=== PATIENT | male | born 1975 | race American Indian/Alaskan Native ===

== ENCOUNTER 2016-07-29 09:54 | Inpatient (IN) | payer OTHER ==
[2016-07-29 09:54] VITALS: BMI 30.7
[2016-07-29] MEDS ORDERED: Albuterol-Ipratrop 3 mg / 0.5 (3 ml) UD ONE ×3 (10:14→14:28)
[2016-07-29] MEDS ORDERED: Albuterol-Ipratrop 3 mg / 0.5 (3 ml) UD INH STA ×4 (10:25→13:59)
--- NOTE | 2016-07-29 10:43 | C.PDOC ---
History Of Present Illness 41 y/o male presents to ED c/o shortness of breath, productive cough, and wheezing for the last several days. Patient states he has been using his inhaler at home without relief. History limited due to clinical condition. Time Seen by Provider: 07/29/16 10:00 Chief Complaint (Nursing): Shortness Of Breath History Per: Patient History/Exam Limitations: clinical condition Onset/Duration Of Symptoms: Days Current Symptoms Are (Timing): Still Present Current Respiratory Medications: See Home Med List Severity: Moderate Associated Symptoms: denies: Fever, Chest Pain Recent travel outside of the [place]: No Past Medical History Reviewed: Historical Data, Nursing Documentation, Vital Signs Vital Signs: Last Vital Signs Temp 98.5 F 08/04/16 15:35 Pulse 90 08/04/16 15:35 Resp 20 08/04/16 15:35 BP 125/74 08/04/16 15:35 Pulse Ox 96 08/04/16 15:35 - Medical History PMH: Anxiety, Arthritis, Asthma, HTN - [facility] Procedures ASSISTANCE WITH RESPIRATORY VENTILATION, <24 HRS, CPAP (08/10/15) INSERTION OF ENDOTRACHEAL AIRWAY INTO TRACHEA, VIA OPENING (08/10/15) RESPIRATORY VENTILATION, 24-96 CONSECUTIVE HOURS (08/10/15) Family History: States: No Known Family Hx - Social History Hx Tobacco Use: Yes Hx Alcohol Use: Yes Hx Substance Use: No - Immunization History Hx Tetanus Toxoid Vaccination: Yes Hx Influenza Vaccination: No Hx Pneumococcal Vaccination: No Review Of Systems Except As Marked, All Systems Reviewed And Found Negative. Constitutional: Negative for: Fever Cardiovascular: Negative for: Chest Pain, Palpitations Respiratory: Positive for: Cough, Shortness of Breath, Sputum, Wheezing Gastrointestinal: Negative for: Nausea, Vomiting, Abdominal Pain, Diarrhea Skin: Negative for: Rash Physical Exam - Physical Exam Appears: Non-toxic, Other (audibly wheezing, speaking in short sentences ) Skin: Warm, Dry, No Rash Head: Normacephalic Oral Mucosa: Moist Cardiovascular: Rhythm Regular Respiratory: No Accessory Muscle Use, No Rales, No Rhonchi, Wheezing (expiratory , bilaterally) Gastrointestinal/Abdominal: Normal Exam, Bowel Sounds, Soft, No Tenderness, No Guarding, No Rebound Back: Normal Inspection Extremity: Normal ROM, No Pedal Edema, No Calf Tenderness Neurological/Psych: Oriented x3 ED Course And Treatment - Laboratory Results Result Diagrams: 08/03/16 14:16 08/03/16 14:16 ECG: Interpreted By Me, Viewed By Me (NSR 82 bpm, normal axis, no acute ST/T wave changes) ECG Interpretation: Normal O2 Sat by Pulse Oximetry: 95 (RA) Pulse Ox Interpretation: Normal - Other Rad CXR X-Ray: Viewed By Me, Read By Radiologist Interpretation: Accession No. : [id number]. Patient Name / ID : NESTOR HANSEN / [id number]. Exam Date : 07/29/2016 10:29:17 ( Approved ). Study Comment : Sex / Age : M / 41Y. Creator : Eevlyn Lombardo MD. Dictator : Evelyn Lombardo MD. Plate Keeper : [employer] Operator : Evelyn Lombardo MD. Approver2 : Report Date : 07/29/2016 10:44:06. My Comment : . HISTORY: cough, sob. COMPARISON: Chest x-ray performed 09/08/15. TECHNIQUE: Chest PA and lateral. FINDINGS: LUNGS: No focal consolidation. Please note that chest x-ray has limited sensitivity for the detection of pulmonary masses. PLEURA: No significant pleural effusion identified. No definite pneumothorax . CARDIOVASCULAR: Heart size appears top normal. OSSEOUS STRUCTURES: No acute osseous abnormality identified. VISUALIZED UPPER ABDOMEN: Unremarkable. OTHER FINDINGS: None. IMPRESSION: No focal consolidation, significant pleural effusion, or definite pneumothorax identified. Progress Note: Patient given PO prednisone, neb treatments. CXR and peak flow ordered and reviewed. 13:15- Patient reassessed, still having diffuse wheezing. Blood work ordered. Patient given IV solumedrol, IV magnesium sulfate 2g. - Physician Consult Information Physician Contacted: Gustavo Gaona Outcome Of Conversation: Discussed patient with Dr. Gaona, agrees with admission for copd/asthma exacerbation, dyspnea. Critical Care Time - Critical Care Note Total Time (in mins): 35 Documented critical care: time excludes all time spent performing seperately billable procedures. Disposition - Disposition Disposition: HOSPITALIZED Disposition Time: 15:07 Condition: STABLE - Clinical Impression Clinical Impression: COPD exacerbation, Asthma, Dyspnea - Scribe Statement The provider has reviewed the documentation as recorded by the Donny Alarcon Provider Attestation: All medical record entries made by the Donny were at my direction and personally dictated by me. I have reviewed the chart and agree that the record accurately reflects my personal performance of the history, physical exam, medical decision making, and the department course for this patient. I have also personally directed, reviewed, and agree with the discharge instructions and disposition.
[2016-07-29] MEDS ORDERED: Albuterol 0.083% Inhal Sol (2.5 mg/3 mL) UD IH STA ×2 (11:19→11:20)
[2016-07-29] MEDS ORDERED: Albuterol 0.083% Inhal Sol (2.5 mg/3 mL) UD ONE (11:36)
[2016-07-29] MEDS ORDERED: Magnesium Sulfate 1 gm in D5W 1 GM/100 ML BAG IV ONE (13:17)
[2016-07-29] MEDS ORDERED: Magnesium Sulfate 1 gm in D5W 1 GM/100 ML BAG IVPB ONE (13:42)
[2016-07-29 13:45] LABS: BASO % 0.9 % (0.0-2.0); EOS % 0.7 % (0.0-4.0); LYMPH # 0.5 K/uL (1.0-4.3); LYMPH % 9.2 % (20.0-40.0); MEAN CELL VOLUME 90.9 fL (80.0-94.0); MEAN CORPUSCULAR HEMOGLOBIN 29.2 pg (27.0-31.0); MEAN CORPUSCULAR HGB CONC 32.1 g/dL (33.0-37.0); MEAN PLATELET VOLUME 8.4 fL (7.2-11.7); MONO # 0.1 K/uL (0.0-0.8); MONO % 2.6 % (0.0-10.0); NRBC % 0.1 % (0.0-2.0); PLATELET COUNT 302 K/uL (130-400); RED CELL DISTRIBUTION WIDTH 13.5 % (11.5-14.5)
[2016-07-29 13:53] LABS: CHLORIDE 100 mmol/L (98-107); POTASSIUM 3.9 mmol/L (3.6-5.2); SODIUM 138 mmol/L (132-148)
[2016-07-29 13:55] LABS: AST/SGOT 27 U/L (17-59); BILIRUBIN,TOTAL 0.9 mg/dL (0.2-1.3); CARBON DIOXIDE 29 mmol/L (22-30); GFR AFRICAN-AMERICAN > 60
[2016-07-29 13:56] LABS: ALB/GLOB RATIO 1.5 (1.0-2.1); ALKALINE PHOSPHATASE 64 U/L (38-126); ALT/SGPT 25 U/L (21-72); BLOOD UREA NITROGEN 6 mg/dL (9-20); GLUCOSE,RANDOM 115 mg/dL (75-110); TOTAL PROTEIN 7.7 g/dL (6.3-8.3)
[2016-07-29 14:25] LABS: EOSINOPHIL 1 % (0-4); NEUTROPHIL 90 % (50-75); TOTAL CELLS COUNTED 100
[2016-07-29] MEDS ORDERED: Moxifloxacin IV 400mg/250ml NS 400 MG/250 ML BAG IVPB ONE (15:34)
[2016-07-29] MEDS ORDERED: Moxifloxacin IV 400mg/250ml NS 400 MG/250 ML BAG IV ONE (16:00)
[2016-07-29] MEDS: Albuterol-Ipratrop 3 mg / 0.5 (3 ml) UD INH SCH ×4 (18:10→22:47)
[2016-07-30] MEDS: Albuterol-Ipratrop 3 mg / 0.5 (3 ml) UD INH SCH ×10 (00:24→20:02)
[2016-07-30 12:13] LABS: BASO % 0.3 % (0.0-2.0); EOS % 0.1 % (0.0-4.0); LYMPH # 1.6 K/uL (1.0-4.3); LYMPH % 17.2 % (20.0-40.0); MEAN CELL VOLUME 90.4 fL (80.0-94.0); MEAN CORPUSCULAR HGB CONC 33.2 g/dL (33.0-37.0); MEAN PLATELET VOLUME 8.5 fL (7.2-11.7); MONO % 11.1 % (0.0-10.0)
[2016-07-30 12:17] LABS: CHLORIDE 98 mmol/L (98-107)
[2016-07-30 12:18] LABS: POTASSIUM 3.3 mmol/L (3.6-5.2); SODIUM 138 mmol/L (132-148)
[2016-07-30 12:20] LABS: ALB/GLOB RATIO 1.5 (1.0-2.1); ALKALINE PHOSPHATASE 57 U/L (38-126); ALT/SGPT 22 U/L (21-72); AST/SGOT 19 U/L (17-59); BILIRUBIN,TOTAL 0.6 mg/dL (0.2-1.3); BLOOD UREA NITROGEN 11 mg/dL (9-20); CARBON DIOXIDE 29 mmol/L (22-30); GFR AFRICAN-AMERICAN > 60
[2016-07-30 12:21] LABS: GLUCOSE,RANDOM 98 mg/dL (75-110); WHITE BLOOD COUNT 9.4 K/uL (4.8-10.8)
[2016-07-30] MEDS ORDERED: Potassium Chloride 20 mEq ER Tab PO ONE ×2 (12:32→14:24)
--- NOTE | 2016-07-30 12:46 | CP.PCM.PN ---
Subjective - Date & Time of Evaluation Date of Evaluation: 07/30/16 Time of Evaluation: 09:00 - Subjective Subjective: PGY2 on medicine Dr. Gaona service: Pt seen and examined at bedside this morning. Pt has hx of asthma and intubation in the past. 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 He has experienced SOB and wheezing for several days. Pt takes Symbicort as needed and nebulizer every 6 hours without success. Currently reporting improvement of symptoms overnight. Objective - Vital Signs/Intake and Output Vital Signs (last 24 hours): Temp Pulse Resp BP Pulse Ox 98.6 F 90 18 144/78 95 07/30/16 08:40 07/30/16 08:40 07/30/16 08:40 07/30/16 08:40 07/30/16 08:40 Intake and Output: 07/30/16 07/30/16 06:59 18:59 Intake Total 120 Output Total 200 Balance -80 - Medications Medications: Current Medications Albuterol/Ipratropium (Duoneb 3 Mg/0.5 Mg (3 Ml) Ud) 3 ml INH RQ2 JERARDO Last Admin: 07/30/16 11:33 Dose: 3 ml Nicotine (Nicoderm Cq) 1 patch TD DAILY JERARDO Last Admin: 07/29/16 15:48 Dose: 1 patch Pneumococcal Polyvalent Vaccine (Pneumovax 23 Vaccine) 0.5 ml IM .ONCE ONE Stop: 07/31/16 10:01 Potassium Chloride (K-Dur 20 Meq Er Tab) 40 meq PO ONCE ONE Stop: 07/30/16 12:33 - Labs Labs: 07/30/16 11:52 07/30/16 11:52 - Constitutional Appears: Non-toxic, No Acute Distress - Head Exam Head Exam: NORMOCEPHALIC - Eye Exam Eye Exam: Normal appearance - ENT Exam ENT Exam: Mucous Membranes Moist - Respiratory Exam Respiratory Exam: Rales, Rhonchi, Wheezes, NORMAL BREATHING PATTERN - Cardiovascular Exam Cardiovascular Exam: REGULAR RHYTHM, +S1, +S2. absent: Gallop, Rubs - GI/Abdominal Exam GI & Abdominal Exam: Normal Bowel Sounds - Neurological Exam Neurological Exam: Alert, Awake, Oriented x3 Assessment and Plan - Assessment and Plan (Free Text) Assessment: SOB Astham vs COPD exacerbation. Received Duoneb, Avelox and Solumedrol in ED. CXR showed no significant etiologies per report. Continue Duoneb and Solumderol 40mg IV q6. Prophylactic measure SCD.
--- NOTE | 2016-07-30 14:06 | HP ---
This 41-year-old male ____ to the hospital with chief complaint of weakness, shortness of breath, whe ezing, fatigue, tiredness, cough not responding to therapy. The patient came to the hospital, advise d admission. The patient has history of COPD, smoker. PHYSICAL EXAMINATION: GENERAL: The patient is awake, alert, oriented. VITAL SIGNS: Temperature 98, pulse 90. HEENT: Within normal limits. NECK: Supple. CHEST: Symmetrical. HEART: Regular. ABDOMEN: Soft. EXTREMITIES: No edema. The patient suffers from exacerbation of chronic obstructive pulmonary disease, bronchitis. The dima ent bed rest, supportive care, bronchodilators. Gustavo Bhakta MD cc: [id number] TT: 07/30/2016 11:20:30 tn
[2016-07-30] MEDS: MethylPREDNISolone 40 mg Vial IV SCH ×2 (14:12→18:47)
[2016-07-30] MEDS ORDERED: Albuterol 0.083% Inhal Sol (2.5 mg/3 mL) UD INH PRN (16:00)
[2016-07-31] MEDS: MethylPREDNISolone 40 mg Vial IV SCH ×4 (00:06→17:52)
[2016-07-31] MEDS: Albuterol-Ipratrop 3 mg / 0.5 (3 ml) UD INH SCH ×4 (01:36→20:08)
[2016-07-31] MEDS ORDERED: Pneumococcal 23-Valent Vaccine IM ONE (10:00)
--- NOTE | 2016-07-31 10:50 | CP.PCM.PN ---
Subjective - Date & Time of Evaluation Date of Evaluation: 07/31/16 Time of Evaluation: 09:00 - Subjective Subjective: PGY2 on medicine Dr. Gaona service: Pt seen and examined at bedside this morning. Pt reports improvement of symptoms slightly but still has wheezing and SOB from time to time. Objective - Vital Signs/Intake and Output Vital Signs (last 24 hours): Temp Pulse Resp BP Pulse Ox 98.1 F 80 20 123/68 97 07/31/16 08:15 07/31/16 08:15 07/31/16 08:15 07/31/16 08:15 07/31/16 08:15 Intake and Output: 07/31/16 07/31/16 06:59 18:59 Intake Total 600 Balance 600 - Medications Medications: Current Medications Albuterol Sulfate (Albuterol 0.083% Inhal Eva (2.5 Mg/3 Ml) Ud) 2.5 mg INH RQ2 PRN PRN Reason: Shortness of Breath Last Admin: 07/30/16 16:59 Dose: 2.5 mg Albuterol/Ipratropium (Duoneb 3 Mg/0.5 Mg (3 Ml) Ud) 3 ml INH RQ6 JERARDO Last Admin: 07/31/16 07:54 Dose: 3 ml Methylprednisolone (Solu-Medrol) 40 mg IV Q6 JERARDO Last Admin: 07/31/16 06:10 Dose: 40 mg Nicotine (Nicoderm Cq) 1 patch TD DAILY [facility] Last Admin: 07/31/16 10:47 Dose: 1 patch - Labs Labs: 07/30/16 11:52 07/30/16 11:52 - Constitutional Appears: Non-toxic, No Acute Distress - Head Exam Head Exam: NORMOCEPHALIC - Eye Exam Eye Exam: Normal appearance - ENT Exam ENT Exam: Mucous Membranes Moist - Respiratory Exam Respiratory Exam: Rales, Rhonchi, Wheezes, NORMAL BREATHING PATTERN - Cardiovascular Exam Cardiovascular Exam: REGULAR RHYTHM, +S1, +S2. absent: Gallop, Rubs - GI/Abdominal Exam GI & Abdominal Exam: Soft, Normal Bowel Sounds - Neurological Exam Neurological Exam: Alert, Awake, Oriented x3 - Psychiatric Exam Psychiatric exam: Normal Mood - Skin Skin Exam: Intact Assessment and Plan - Assessment and Plan (Free Text) Assessment: SOB Astham vs COPD exacerbation. Received Duoneb, Avelox and Solumedrol in ED. CXR showed no significant etiologies per report. Continue Duoneb and Solumderol 40mg IV q6. Phenergan DM syrup. Prophylactic measure SCD. Management per Dr. Gaona.
[2016-07-31] MEDS ORDERED: Promethazine DM 6.25 mg-15 mg/5 ml Syrup PO PRN (12:55)
[2016-07-31] MEDS: Promethazine/Cod 6.25mg-10mg/5ml Syr UD PO PRN (15:29)
[2016-08-01] MEDS: MethylPREDNISolone 40 mg Vial IV SCH ×5 (00:08→23:55)
[2016-08-01] MEDS: Promethazine/Cod 6.25mg-10mg/5ml Syr UD PO PRN ×3 (00:13→18:10)
[2016-08-01] MEDS: Albuterol-Ipratrop 3 mg / 0.5 (3 ml) UD INH SCH ×4 (02:01→20:26)
[2016-08-01 11:18] LABS: LYMPH # 0.6 K/uL (1.0-4.3); MEAN CORPUSCULAR HEMOGLOBIN 29.6 pg (27.0-31.0); MEAN CORPUSCULAR HGB CONC 32.3 g/dL (33.0-37.0); MONO # 0.5 K/uL (0.0-0.8)
[2016-08-01 11:22] LABS: MEAN CELL VOLUME 91.8 fL (80.0-94.0); MEAN PLATELET VOLUME 8.6 fL (7.2-11.7); MONO % 3.4 % (0.0-10.0); PLATELET COUNT 344 K/uL (130-400); RED CELL DISTRIBUTION WIDTH 13.9 % (11.5-14.5)
[2016-08-01 11:23] LABS: WHITE BLOOD COUNT 14.8 K/uL (4.8-10.8)
[2016-08-01 11:26] LABS: CHLORIDE 97 mmol/L (98-107)
[2016-08-01 11:27] LABS: POTASSIUM 3.9 mmol/L (3.6-5.2); SODIUM 138 mmol/L (132-148)
[2016-08-01 11:29] LABS: BILIRUBIN,TOTAL 0.5 mg/dL (0.2-1.3); GFR AFRICAN-AMERICAN > 60
[2016-08-01 11:30] LABS: ALB/GLOB RATIO 1.5 (1.0-2.1); ALKALINE PHOSPHATASE 56 U/L (38-126); ALT/SGPT 34 U/L (21-72); AST/SGOT 25 U/L (17-59); BLOOD UREA NITROGEN 16 mg/dL (9-20); CALCIUM 9.5 mg/dl (8.6-10.4); CARBON DIOXIDE 29 mmol/L (22-30); GLUCOSE,RANDOM 160 mg/dL (75-110); TOTAL PROTEIN 7.4 g/dL (6.3-8.3)
[2016-08-01 11:39] LABS: NEUTROPHIL 90 % (50-75); TOTAL CELLS COUNTED 100
[2016-08-01 11:41] LABS: LARGE PLATELETS PRESENT
[2016-08-02] MEDS: Promethazine/Cod 6.25mg-10mg/5ml Syr UD PO PRN ×4 (00:12→19:21)
[2016-08-02] MEDS: Albuterol-Ipratrop 3 mg / 0.5 (3 ml) UD INH SCH ×4 (01:09→19:08)
[2016-08-02] MEDS: MethylPREDNISolone 40 mg Vial IV SCH ×4 (06:43→23:58)
[2016-08-02 11:36] LABS: BASO % 0.2 % (0.0-2.0); HEMATOCRIT 45.9 % (35.0-51.0); LYMPH # 0.5 K/uL (1.0-4.3); LYMPH % 3.7 % (20.0-40.0); MEAN CELL VOLUME 92.2 fL (80.0-94.0); MEAN CORPUSCULAR HEMOGLOBIN 29.5 pg (27.0-31.0); MEAN PLATELET VOLUME 8.3 fL (7.2-11.7); MONO # 0.5 K/uL (0.0-0.8); PLATELET COUNT 349 K/uL (130-400); RED CELL DISTRIBUTION WIDTH 14.1 % (11.5-14.5); WHITE BLOOD COUNT 13.5 K/uL (4.8-10.8)
[2016-08-02 11:45] LABS: CHLORIDE 96 mmol/L (98-107)
[2016-08-02 11:46] LABS: POTASSIUM 4.1 mmol/L (3.6-5.2); SODIUM 136 mmol/L (132-148)
[2016-08-02 11:48] LABS: ALB/GLOB RATIO 1.5 (1.0-2.1); ALKALINE PHOSPHATASE 64 U/L (38-126); AST/SGOT 39 U/L (17-59); BILIRUBIN,TOTAL 0.5 mg/dL (0.2-1.3); CARBON DIOXIDE 31 mmol/L (22-30); GFR AFRICAN-AMERICAN > 60
[2016-08-02 11:49] LABS: ALT/SGPT 71 U/L (21-72); BLOOD UREA NITROGEN 13 mg/dL (9-20); CALCIUM 9.1 mg/dl (8.6-10.4); GLUCOSE,RANDOM 163 mg/dL (75-110)
[2016-08-02 11:53] LABS: NEUTROPHIL 95 % (50-75); TOTAL CELLS COUNTED 100
[2016-08-02 11:54] LABS: LARGE PLATELETS PRESENT
[2016-08-03] MEDS: Albuterol-Ipratrop 3 mg / 0.5 (3 ml) UD INH SCH ×4 (01:36→19:01)
[2016-08-03] MEDS: MethylPREDNISolone 40 mg Vial IV SCH ×3 (05:46→17:27)
[2016-08-03] MEDS: Promethazine/Cod 6.25mg-10mg/5ml Syr UD PO PRN ×2 (05:46→17:28)
--- NOTE | 2016-08-03 08:40 | CP.PCM.PN ---
Subjective - Date & Time of Evaluation Date of Evaluation: 08/03/16 Time of Evaluation: 09:00 - Subjective Subjective: Dr. Gaona's note: Patient is seen in room. He reports to having been admitted to the hospital before for asthma. He works for the [employer] and his asthma is exacerbate by dust and allergens. He is compling of diffaculty breathing, wheezing, coughing, and chest tightness. He is still coughing and complaining of chest tightness since admission. He denies fever or chills. Objective - Vital Signs/Intake and Output Vital Signs (last 24 hours): Temp Pulse Resp BP Pulse Ox 98.1 F 81 20 134/90 95 08/03/16 08:38 08/03/16 08:38 08/03/16 08:38 08/03/16 08:38 08/03/16 08:38 - Medications Medications: Current Medications Albuterol Sulfate (Albuterol 0.083% Inhal Eva (2.5 Mg/3 Ml) Ud) 2.5 mg INH RQ2 PRN PRN Reason: Shortness of Breath Last Admin: 07/30/16 16:59 Dose: 2.5 mg Albuterol/Ipratropium (Duoneb 3 Mg/0.5 Mg (3 Ml) Ud) 3 ml INH RQ6 JERARDO Last Admin: 08/03/16 01:36 Dose: 3 ml Methylprednisolone (Solu-Medrol) 40 mg IV Q6 JERARDO Last Admin: 08/03/16 05:46 Dose: 40 mg Nicotine (Nicoderm Cq) 1 patch TD DAILY JERARDO Last Admin: 08/02/16 10:10 Dose: 1 patch Promethazine HCl/Codeine (Phenergan/Codeine Oral Syrup) 5 ml PO Q6H PRN PRN Reason: cough Last Admin: 08/03/16 05:46 Dose: 5 ml - Labs Labs: 08/02/16 11:27 08/02/16 11:27 - Constitutional Appears: Non-toxic, No Acute Distress - Head Exam Head Exam: NORMAL INSPECTION - Eye Exam Eye Exam: Normal appearance - Respiratory Exam Respiratory Exam: Decreased Breath Sounds, Wheezes. absent: Clear to Ausculation Bilateral, Rales, Rhonchi - Cardiovascular Exam Cardiovascular Exam: REGULAR RHYTHM, RRR, +S1, +S2. absent: Gallop, Rubs - GI/Abdominal Exam GI & Abdominal Exam: Soft, Normal Bowel Sounds. absent: Tenderness - Extremities Exam Extremities Exam: Normal Inspection. absent: Pedal Edema - Psychiatric Exam Psychiatric exam: Normal Affect, Normal Mood - Skin Skin Exam: Dry
[2016-08-03 14:34] LABS: BASO % 0.2 % (0.0-2.0); EOS % 0.1 % (0.0-4.0); HEMATOCRIT 45.7 % (35.0-51.0); LYMPH # 0.8 K/uL (1.0-4.3); LYMPH % 4.4 % (20.0-40.0); MEAN CELL VOLUME 92.7 fL (80.0-94.0); MEAN CORPUSCULAR HEMOGLOBIN 29.6 pg (27.0-31.0); MEAN PLATELET VOLUME 8.8 fL (7.2-11.7); MONO # 0.5 K/uL (0.0-0.8); NRBC % 0.1 % (0.0-2.0); PLATELET COUNT 376 K/uL (130-400); RED CELL DISTRIBUTION WIDTH 14.2 % (11.5-14.5); WHITE BLOOD COUNT 17.4 K/uL (4.8-10.8)
[2016-08-03 14:51] LABS: CHLORIDE 95 mmol/L (98-107); SODIUM 132 mmol/L (132-148)
[2016-08-03 14:53] LABS: AST/SGOT 88 U/L (17-59); CARBON DIOXIDE 25 mmol/L (22-30); GFR AFRICAN-AMERICAN > 60
[2016-08-03 14:54] LABS: ALB/GLOB RATIO 1.4 (1.0-2.1); ALKALINE PHOSPHATASE 64 U/L (38-126); ALT/SGPT 115 U/L (21-72); BLOOD UREA NITROGEN 17 mg/dL (9-20); CALCIUM 9.1 mg/dl (8.6-10.4); GLUCOSE,RANDOM 154 mg/dL (75-110); TOTAL PROTEIN 7.3 g/dL (6.3-8.3)
[2016-08-03 15:01] LABS: POTASSIUM 5.2 mmol/L (3.6-5.2)
[2016-08-03 15:22] LABS: NEUTROPHIL 96 % (50-75); TOTAL CELLS COUNTED 100
[2016-08-04] MEDS: MethylPREDNISolone 40 mg Vial IV SCH ×3 (00:42→11:30)
[2016-08-04] MEDS: Promethazine/Cod 6.25mg-10mg/5ml Syr UD PO PRN ×2 (00:51→09:40)
[2016-08-04] MEDS: Albuterol-Ipratrop 3 mg / 0.5 (3 ml) UD INH SCH ×3 (01:32→14:33)
--- NOTE | 2016-08-04 09:45 | CP.PCM.PN ---
Subjective - Date & Time of Evaluation Date of Evaluation: 08/04/16 Time of Evaluation: 09:45 - Subjective Subjective: Dr. Gaona note: Patient was seen in room. He says he feels better and is not coughing. He also denies fever, chills, nasuea, vomiting, or diarrhea. Objective - Vital Signs/Intake and Output Vital Signs (last 24 hours): Temp Pulse Resp BP Pulse Ox 97.8 F 81 18 122/79 96 08/04/16 07:30 08/04/16 07:30 08/04/16 07:30 08/04/16 07:30 08/04/16 07:30 Intake and Output: 08/04/16 08/04/16 06:59 18:59 Intake Total 240 Balance 240 - Medications Medications: Current Medications Albuterol Sulfate (Albuterol 0.083% Inhal Eva (2.5 Mg/3 Ml) Ud) 2.5 mg INH RQ2 PRN PRN Reason: Shortness of Breath Last Admin: 07/30/16 16:59 Dose: 2.5 mg Albuterol/Ipratropium (Duoneb 3 Mg/0.5 Mg (3 Ml) Ud) 3 ml INH RQ6 JERARDO Last Admin: 08/04/16 08:14 Dose: 3 ml Methylprednisolone (Solu-Medrol) 40 mg IV Q6 JERARDO Last Admin: 08/04/16 06:10 Dose: 40 mg Nicotine (Nicoderm Cq) 1 patch TD DAILY JERARDO Last Admin: 08/04/16 09:40 Dose: 1 patch Promethazine HCl/Codeine (Phenergan/Codeine Oral Syrup) 5 ml PO Q6H PRN PRN Reason: cough Last Admin: 08/04/16 09:40 Dose: 5 ml - Labs Labs: 08/03/16 14:16 08/03/16 14:16 - Constitutional Appears: Non-toxic, No Acute Distress - Eye Exam Eye Exam: Normal appearance - ENT Exam ENT Exam: Normal Exam - Respiratory Exam Respiratory Exam: Decreased Breath Sounds, Wheezes. absent: Clear to Ausculation Bilateral, Rales, Rhonchi - Cardiovascular Exam Cardiovascular Exam: REGULAR RHYTHM, RRR, +S1, +S2. absent: Gallop, Rubs - GI/Abdominal Exam GI & Abdominal Exam: Soft, Normal Bowel Sounds. absent: Tenderness - Extremities Exam Extremities Exam: Normal Inspection. absent: Pedal Edema - Back Exam Back Exam: NORMAL INSPECTION - Psychiatric Exam Psychiatric exam: Normal Affect, Normal Mood - Skin Skin Exam: Normal Color Assessment and Plan - Assessment and Plan (Free Text) Assessment: Patient discharged home with medrol dose pack, he will follow up with Dr. Gaona.
--- NOTE | 2016-08-04 10:17 | PN ---
DATE: 08/01/2016 The patient still complains of shortness of breath, wheeze and fatigue. The patient continued bronch odilators, steroids. Gustavo Bhakta MD cc: [id number] TT: 08/01/2016 10:34:57 Confirmation # [id number] Dictation # [id number] 08/04/2016 09:15:19
[2016-08-04 15:36] VITALS: BP 125/74; PULSE 90; RESP 20; TEMP 98.5
[2016-08-05 05:04] VITALS: O2SAT 95
--- NOTE | 2016-08-05 08:25 | PN ---
DATE: 08/03/2016 The patient is complaining of weakness, fatigue, tiredness, shortness of breath, wheezing. bro nchodilators, supportive care. Gustavo Bhakta MD cc: [phone] TT: 08/03/2016 10:12:20 Confirmation # [id number] Dictation # [id number]
--- NOTE | 2016-08-06 01:36 | CARD ---
APPROVED REPORT EKG Measurement Heart [id number] <Conclusion> Normal sinus rhythm Normal ECG
== END 2016-08-04 16:02 | disposition home or self-care (01) | DRG 88 ==
LOC: C.ER 09:54 → C.9E 15:07 → C.6T 15:40
PROVIDERS: ADMIT Internal Medicine Pulmonary Disease; ATTEND Internal Medicine Pulmonary Disease
DX: J44.1 Chronic obstructive pulmonary disease with (acute) exacerbation (principal); J45.901 Unspecified asthma with (acute) exacerbation; I10 Essential (primary) hypertension; F17.210 Nicotine dependence, cigarettes, uncomplicated

== ENCOUNTER 2016-11-03 04:19 | Inpatient (IN) | payer OTHER ==
[2016-11-03 04:19] VITALS: BMI 30.7
[2016-11-03] MEDS ORDERED: Magnesium Sulfate 1 gm in D5W 1 GM/100 ML BAG IVPB ONE ×2 (04:35→04:54)
[2016-11-03] MEDS ORDERED: Albuterol-Ipratrop 3 mg / 0.5 (3 ml) UD IH SCH (04:45)
[2016-11-03 04:46] LABS: BASO # 0.1 K/uL (0.0-0.2); BASO % 1.2 % (0.0-2.0); EOS # 0.5 K/uL (0.0-0.7); LYMPH # 1.8 K/uL (1.0-4.3); LYMPH % 30.8 % (20.0-40.0); MEAN CELL VOLUME 90.2 fL (80.0-94.0); MEAN CORPUSCULAR HEMOGLOBIN 30.3 pg (27.0-31.0); MEAN CORPUSCULAR HGB CONC 33.6 g/dL (33.0-37.0); MEAN PLATELET VOLUME 7.9 fL (7.2-11.7); MONO # 0.6 K/uL (0.0-0.8); MONO % 10.1 % (0.0-10.0); WHITE BLOOD COUNT 5.9 K/uL (4.8-10.8)
[2016-11-03] MEDS: Albuterol-Ipratrop 3 mg / 0.5 (3 ml) UD IH SCH ×2 (05:00→05:15)
[2016-11-03 05:04] LABS: ALB/GLOB RATIO 1.4 (1.0-2.1); ALKALINE PHOSPHATASE 66 U/L (38-126); ALT/SGPT 40 U/L (21-72); AST/SGOT 27 U/L (17-59); BILIRUBIN,TOTAL 0.4 mg/dL (0.2-1.3); BLOOD UREA NITROGEN 13 mg/dL (9-20); CALCIUM 9.3 mg/dl (8.6-10.4); CARBON DIOXIDE 22 mmol/L (22-30); CHLORIDE 102 mmol/L (98-107); GFR AFRICAN-AMERICAN > 60; GLUCOSE,RANDOM 94 mg/dL (75-110); POTASSIUM 3.5 mmol/L (3.6-5.2); SODIUM 141 mmol/L (132-148); TOTAL PROTEIN 7.1 g/dL (6.3-8.3)
[2016-11-03] MEDS ORDERED: Albuterol-Ipratrop 3 mg / 0.5 (3 ml) UD ONE (05:17)
[2016-11-03] MEDS ORDERED: Magnesium Sulfate 1 gm in D5W 1 GM/100 ML BAG IVPB STA (05:17)
--- NOTE | 2016-11-03 06:20 | RAD ---
PROCEDURE: CHEST RADIOGRAPH, 1 VIEW HISTORY: Shortness of breath COMPARISON: 07/29/2016 FINDINGS: LUNGS: Mild venous congestion. Patchy increased markings in the right infrahilar region. Mild nodularity at the left upper lung zone which may represent confluence of shadows with ribs, vessels, and external catheter. PLEURA: No pneumothorax or pleural fluid seen. CARDIOVASCULAR: Normal. OSSEOUS STRUCTURES: No significant abnormalities. VISUALIZED UPPER ABDOMEN: Normal. OTHER FINDINGS: None. IMPRESSION: Mild venous congestion. Patchy increased markings in the right infrahilar region. Mild nodularity at the left upper lung zone which may represent confluence of shadows with ribs, vessels, and external catheter.
--- NOTE | 2016-11-03 06:31 | C.PDOC ---
Time Seen by Provider: 11/03/16 04:24 Chief Complaint (Nursing): Shortness Of Breath History Per: Patient Onset/Duration Of Symptoms: Days (about 1 week) Current Symptoms Are (Timing): Worse Current Respiratory Medications: See Home Med List Severity: Moderate Associated Symptoms: Productive Cough Additional History Per: Prior Records Past Medical History Reviewed: Historical Data, Nursing Documentation, Vital Signs Vital Signs: Last Vital Signs Temp 98.0 F 11/03/16 04:26 Pulse 93 H 11/03/16 06:24 Resp 19 11/03/16 06:24 BP 120/79 11/03/16 05:23 Pulse Ox 90 L 11/03/16 06:31 - Medical History PMH: Anxiety, Arthritis, Asthma, COPD, HTN Surgical History: No Surg Hx - [facility] Procedures ASSISTANCE WITH RESPIRATORY VENTILATION, <24 HRS, CPAP (08/10/15) INSERTION OF ENDOTRACHEAL AIRWAY INTO TRACHEA, VIA OPENING (08/10/15) RESPIRATORY VENTILATION, 24-96 CONSECUTIVE HOURS (08/10/15) Family History: States: Unknown Family Hx - Social History Hx Tobacco Use: Yes Hx Alcohol Use: Yes Hx Substance Use: No - Immunization History Hx Tetanus Toxoid Vaccination: Yes Hx Influenza Vaccination: No Hx Pneumococcal Vaccination: No Review Of Systems Except As Marked, All Systems Reviewed And Found Negative. Constitutional: Negative for: Fever ENT: Negative for: Throat Pain, Throat Swelling Respiratory: Positive for: Cough, Shortness of Breath, Sputum, Wheezing. Negative for: Hemoptysis Gastrointestinal: Negative for: Vomiting, Abdominal Pain Musculoskeletal: Negative for: Neck Pain Skin: Negative for: Rash Neurological: Negative for: Weakness, Numbness, Seizures, Altered Mental Status Physical Exam - Physical Exam Appears: In Acute Distress Skin: Normal Color, Warm, Dry, No Rash Head: Atraumatic, Normacephalic Eye(s): bilateral: PERRL, EOMI Neck: Normal ROM, Supple Cardiovascular: Rhythm Regular Respiratory: Wheezing Gastrointestinal/Abdominal: Soft, No Tenderness Extremity: Normal ROM, No Pedal Edema, No Calf Tenderness Neurological/Psych: Oriented x3, Normal Motor, Normal Sensation ED Course And Treatment - Laboratory Results Result Diagrams: 11/03/16 04:40 11/03/16 04:40 Lab Interpretation: No Acute Changes O2 Sat by Pulse Oximetry: 90 Pulse Ox Interpretation: Abnormal Interpretation Of Abnormal: Hypoxia on RA - Radiology CXR: Interpreted by Me, Viewed By Me CXR Interpretation: Yes: No Acute Disease Disposition - Disposition Disposition Time: 07:00 Condition: FAIR - Clinical Impression Clinical Impression: COPD exacerbation Physician Patient Turnover Patient Signed Over To: [place] Handoff Comments: pending call back from Dr. Gaona and dispo pt.
[2016-11-03] MEDS ORDERED: Azithromycin 500mg/250ML NS 500 MG/250 ML BAG IVPB STA (06:33)
[2016-11-03] MEDS ORDERED: Azithromycin 500mg/250ML NS 500 MG/250 ML BAG IVPB ONE (07:09)
[2016-11-03 09:06] VITALS: RESP 20
[2016-11-03] MEDS: Albuterol-Ipratrop 3 mg / 0.5 (3 ml) UD INH PRN ×3 (12:05→20:16)
[2016-11-03] MEDS: MethylPREDNISolone 40 mg Vial IVP SCH ×2 (12:22→17:25)
[2016-11-03] MEDS: Pantoprazole 40 mg EC Tab PO SCH (12:22)
--- NOTE | 2016-11-03 16:19 | CP.PCM.PN ---
Subjective - Date & Time of Evaluation Date of Evaluation: 11/03/16 Time of Evaluation: 11:35 - Subjective Subjective: PGY 2 Medicine Note- Dr. Gaona's service: CC: shortness of breath HPI: 41 year old male with past medical history significant for asthma presents with complaints of increasing shortness of breath over the past few days. Patient states that he was grocery shopping at [place] when the symptoms began. He states that he was only able to take a few short breaths before his symptoms began. He states that he can barely walk a block these past couple of days as well. He uses his albuterol pump daily for relief. Patient admits to some chest discomfort associated with the dyspnea however it resolves soon after. He admits to productive cough with white sputum. He denies fevers, chills, headaches, diarrhea, paresthesias at this time. PMHx- asthma PSHx- jaw surgery Fam Hx- Dad had open heart surgery; Mom dies of an NE at 45; Sisters have asthma Meds: Symbicort daily, albuterol daily ( as stated), cough suppressant Social Hx- admits to smoking 1ppd for 20 years, drinks 2-3 beers on the weekends; denies marijuana or other illicit drug use Allergies- NKDA Objective - Vital Signs/Intake and Output Vital Signs (last 24 hours): Temp Pulse Resp BP Pulse Ox 98.1 F 97 H 20 146/91 H 95 11/03/16 15:30 11/03/16 15:30 11/03/16 15:30 11/03/16 15:30 11/03/16 15:30 - Medications Medications: Current Medications Albuterol/Ipratropium (Duoneb 3 Mg/0.5 Mg (3 Ml) Ud) 3 ml INH Q4H PRN PRN Reason: Wheezing Last Admin: 11/03/16 12:05 Dose: 3 ml Azithromycin 500 mg/ Sodium (Chloride) 250 mls @ 250 mls/hr IVPB DAILY JERARDO Methylprednisolone (Solu-Medrol) 40 mg IVP Q6H JERARDO Last Admin: 11/03/16 12:22 Dose: 40 mg Pantoprazole Sodium (Protonix Ec Tab) 40 mg PO DAILY JERARDO Last Admin: 11/03/16 12:22 Dose: 40 mg - Constitutional Appears: Non-toxic, No Acute Distress - Head Exam Head Exam: ATRAUMATIC, NORMAL INSPECTION, NORMOCEPHALIC - Eye Exam Eye Exam: EOMI, Normal appearance, PERRL Pupil Exam: NORMAL ACCOMODATION, PERRL - ENT Exam ENT Exam: Mucous Membranes Moist - Neck Exam Neck Exam: Full ROM - Respiratory Exam Respiratory Exam: Decreased Breath Sounds, Wheezes, NORMAL BREATHING PATTERN - Cardiovascular Exam Cardiovascular Exam: +S1, +S2 - GI/Abdominal Exam GI & Abdominal Exam: Soft, Normal Bowel Sounds - Extremities Exam Extremities Exam: Full ROM - Back Exam Back Exam: Full ROM - Neurological Exam Neurological Exam: Alert, Awake, Normal Gait - Psychiatric Exam Psychiatric exam: Normal Affect, Normal Mood - Skin Skin Exam: Dry, Intact, Normal Color, Warm Assessment and Plan (1) Asthma exacerbation Assessment & Plan: CXR - mild venous congestion Patchy increased markings in right infrahilar region. Mild nodularity at left upper lung zone which may represent confluence of shadows with ribs, vessels and external catheter Afebrile, no leukocytosis On duonebs PRN, Advair Q12m Solumedrol Q6. Will need to wean off steroids Patient counseled that his asthma is not controlled if he is requiring the use of his albuterol daily. Will monitor in house. Status: Acute (2) Hypokalemia Assessment & Plan: Likely due to duoneb administration. Repleted Monitor Status: Acute (3) Prophylactic measure Assessment & Plan: SCDs Ambulates Currently on PPI however GI prophylaxis not indicated at this time Status: Acute
[2016-11-03] MEDS ORDERED: Potassium Chloride 20 mEq ER Tab PO ONE (16:45)
[2016-11-03] MEDS: Promethazine/Cod 6.25mg-10mg/5ml Syr UD PO PRN (16:45)
[2016-11-03] MEDS: Fluticasone-Salmeterol 250-50mcg Diskus INH SCH (22:05)
[2016-11-04] MEDS: MethylPREDNISolone 40 mg Vial IVP SCH ×3 (00:52→22:16)
[2016-11-04] MEDS: Albuterol-Ipratrop 3 mg / 0.5 (3 ml) UD INH PRN ×5 (04:06→19:19)
[2016-11-04] MEDS: Promethazine/Cod 6.25mg-10mg/5ml Syr UD PO PRN ×2 (04:10→13:47)
[2016-11-04] MEDS: Fluticasone-Salmeterol 250-50mcg Diskus INH SCH ×2 (08:22→19:19)
[2016-11-04] MEDS: Azithromycin 500 MG in Sodium Chloride 0.9% 250 ML IVPB SCH (09:52)
[2016-11-04] MEDS: Pantoprazole 40 mg EC Tab PO SCH (09:52)
[2016-11-04] MEDS ORDERED: MethylPREDNISolone 40 mg Vial IVP SCH (11:30)
[2016-11-04 11:36] LABS: BASO % 0.2 % (0.0-2.0); LYMPH # 0.7 K/uL (1.0-4.3); LYMPH % 4.3 % (20.0-40.0); MEAN CORPUSCULAR HEMOGLOBIN 30.2 pg (27.0-31.0); MEAN CORPUSCULAR HGB CONC 33.2 g/dL (33.0-37.0); MONO # 0.6 K/uL (0.0-0.8); MONO % 3.6 % (0.0-10.0); PLATELET COUNT 324 K/uL (130-400); RED CELL DISTRIBUTION WIDTH 14.4 % (11.5-14.5); WHITE BLOOD COUNT 17.3 K/uL (4.8-10.8)
[2016-11-04 11:51] LABS: ALB/GLOB RATIO 1.4 (1.0-2.1); ALKALINE PHOSPHATASE 71 U/L (38-126); ALT/SGPT 37 U/L (21-72); AST/SGOT 25 U/L (17-59); BILIRUBIN,TOTAL 0.4 mg/dL (0.2-1.3); BLOOD UREA NITROGEN 14 mg/dL (9-20); CALCIUM 10.2 mg/dl (8.6-10.4); CARBON DIOXIDE 25 mmol/L (22-30); CHLORIDE 99 mmol/L (98-107); GFR AFRICAN-AMERICAN > 60; GLUCOSE,RANDOM 157 mg/dL (75-110); MAGNESIUM 2.1 mg/dL (1.6-2.3); PHOSPHOROUS 2.8 mg/dL (2.5-4.5); POTASSIUM 4.3 mmol/L (3.6-5.2); SODIUM 139 mmol/L (132-148); TOTAL PROTEIN 7.3 g/dL (6.3-8.3)
[2016-11-04 11:58] LABS: NEUTROPHIL 92 % (50-75); TOTAL CELLS COUNTED 100
--- NOTE | 2016-11-04 15:17 | CP.PCM.PN ---
Subjective - Date & Time of Evaluation Date of Evaluation: 11/04/16 Time of Evaluation: 09:15 - Subjective Subjective: PGY2 medicine progress note for Dr. Gaona's service: Patient seen and examined. Patient reports his respiratory function has been worsening since this past Wednesday. Patient states his breathing has improved since being in the hospital. Objective - Vital Signs/Intake and Output Vital Signs (last 24 hours): Temp Pulse Resp BP Pulse Ox 98.1 F 89 20 150/87 96 11/04/16 07:00 11/04/16 07:00 11/04/16 07:00 11/04/16 07:00 11/04/16 07:00 Intake and Output: 11/04/16 11/04/16 06:59 18:59 Intake Total 840 730 Balance 840 730 - Medications Medications: Current Medications Albuterol/Ipratropium (Duoneb 3 Mg/0.5 Mg (3 Ml) Ud) 3 ml INH RQ4 PRN PRN Reason: Wheezing Last Admin: 11/04/16 14:07 Dose: 3 ml Azithromycin 500 mg/ Sodium (Chloride) 250 mls @ 250 mls/hr IVPB DAILY JERARDO Last Admin: 11/04/16 09:52 Dose: 250 mls/hr Methylprednisolone (Solu-Medrol) 40 mg IVP Q8H JERARDO Last Admin: 11/04/16 13:47 Dose: 40 mg Pantoprazole Sodium (Protonix Ec Tab) 40 mg PO DAILY JERARDO Last Admin: 11/04/16 09:52 Dose: 40 mg Promethazine HCl/Codeine (Phenergan/Codeine Oral Syrup) 5 ml PO QID PRN PRN Reason: Cough Last Admin: 11/04/16 13:47 Dose: 5 ml Fluticasone/Salmeterol (Advair Diskus 250/50) 1 puff INH RQ12 JERARDO Last Admin: 11/04/16 08:22 Dose: Not Given - Labs Labs: 11/04/16 11:31 11/04/16 11:31 - Constitutional Appears: Non-toxic, No Acute Distress - Head Exam Head Exam: ATRAUMATIC, NORMOCEPHALIC - Eye Exam Eye Exam: EOMI - ENT Exam ENT Exam: Mucous Membranes Moist - Respiratory Exam Respiratory Exam: Wheezes (diffuse bilaterally, inspiratory and expiratory). absent: Respiratory Distress - Cardiovascular Exam Cardiovascular Exam: +S1, +S2 - GI/Abdominal Exam GI & Abdominal Exam: Soft, Normal Bowel Sounds. absent: Tenderness - Extremities Exam Extremities Exam: Normal Inspection. absent: Pedal Edema - Neurological Exam Neurological Exam: Alert, Awake - Psychiatric Exam Psychiatric exam: Normal Affect, Normal Mood - Skin Skin Exam: Dry, Warm Assessment and Plan - Assessment and Plan (Free Text) Assessment: (1) Asthma exacerbation Assessment & Plan: 11/04: decreased solumedrol to 40mg q8h 11/03: CXR - mild venous congestion Patchy increased markings in right infrahilar region. Mild nodularity at left upper lung zone which may represent confluence of shadows with ribs, vessels and external catheter Afebrile On duonebs PRN Advair Q12h promethazine codeine 5ml QID azithromycin 500mg IVPB daily Patient counseled that his asthma is not controlled if he is requiring the use of his albuterol daily. Will monitor in house. Status: Acute (2) Hypokalemia Assessment & Plan: Likely due to duoneb administration. Repleted Monitor Status: Acute (3) Leukocytosis Assessment & Plan: Likely due solumedrol will taper steroids and monitor pt afebrile blood culture negative 24 hours Status: Acute (4) Prophylactic measure Assessment & Plan: SCDs Ambulates Currently on PPI however protonix 40mg daily Status: Acute
[2016-11-05] MEDS: Promethazine/Cod 6.25mg-10mg/5ml Syr UD PO PRN ×2 (04:34→09:10)
[2016-11-05] MEDS: Albuterol-Ipratrop 3 mg / 0.5 (3 ml) UD INH PRN ×3 (04:41→13:43)
[2016-11-05] MEDS: MethylPREDNISolone 40 mg Vial IVP SCH (05:06)
[2016-11-05] MEDS: Fluticasone-Salmeterol 250-50mcg Diskus INH SCH (08:16)
[2016-11-05] MEDS: Pantoprazole 40 mg EC Tab PO SCH (09:05)
[2016-11-05] MEDS: Azithromycin 500 MG in Sodium Chloride 0.9% 250 ML IVPB SCH (09:05)
[2016-11-05 09:15] VITALS: BP 126/72; PULSE 85; TEMP 97.6; O2SAT 94
--- NOTE | 2016-11-05 16:16 | CP.PCM.PN ---
Subjective - Date & Time of Evaluation Date of Evaluation: 11/05/16 Time of Evaluation: 07:50 - Subjective Subjective: PGY2 medicine progress note for Dr. Gaona: Patient seen and examined. Patient with improvement in symptoms and denies dyspnea. Patient counseled regarding smoking cessation. Objective - Vital Signs/Intake and Output Vital Signs (last 24 hours): Temp Pulse Resp BP Pulse Ox 97.6 F 85 20 126/72 94 L 11/05/16 08:00 11/05/16 08:00 11/05/16 08:00 11/05/16 08:00 11/05/16 08:00 Intake and Output: 11/05/16 11/05/16 06:59 18:59 Intake Total 740 Balance 740 - Labs Labs: 11/04/16 11:31 11/04/16 11:31 - Constitutional Appears: Non-toxic, No Acute Distress - Head Exam Head Exam: ATRAUMATIC, NORMOCEPHALIC - Eye Exam Eye Exam: EOMI - ENT Exam ENT Exam: Mucous Membranes Moist - Respiratory Exam Respiratory Exam: Wheezes (bilateral) - Cardiovascular Exam Cardiovascular Exam: +S1, +S2 - GI/Abdominal Exam GI & Abdominal Exam: Soft, Normal Bowel Sounds. absent: Tenderness - Extremities Exam Extremities Exam: Normal Inspection - Neurological Exam Neurological Exam: Alert, Awake - Psychiatric Exam Psychiatric exam: Normal Affect - Skin Skin Exam: Dry, Warm Assessment and Plan - Assessment and Plan (Free Text) Assessment: (1) Asthma exacerbation Assessment & Plan: 11/05: patient with improvement in asthma symptoms, will discharge patient on PO medrol dose pack 11/04: decreased solumedrol to 40mg q8h 11/03: CXR - mild venous congestion Patchy increased markings in right infrahilar region. Mild nodularity at left upper lung zone which may represent confluence of shadows with ribs, vessels and external catheter Afebrile On duonebs PRN Advair Q12h promethazine codeine 5ml QID azithromycin 500mg IVPB daily Patient counseled that his asthma is not controlled if he is requiring the use of his albuterol daily. Will monitor in house. Status: Acute (2) Hypokalemia Assessment & Plan: Likely due to duoneb administration. Repleted Monitor Status: Acute (3) Leukocytosis Assessment & Plan: Likely due to solumedrol administration will taper steroids and monitor pt afebrile blood culture negative 48 hours Status: Acute (4) Prophylactic measure Assessment & Plan: SCDs Ambulates protonix 40mg daily Status: Acute All medical management as per Dr. Gaona Patient is stable for discharge home per Dr. Gaona. Patient is being discharged with advair 250/50 1 puff twice daily, medrol dose pack, and z-lynn. Patient is to follow up with Dr. Gaona within one week. Patient is advised to stop smoking. Patient is to return to the ED if his symptoms worsen or reoccur. This was explained to the patient who understands and agrees.
== END 2016-11-05 14:20 | disposition home or self-care (01) | DRG 96 ==
LOC: C.ER 04:19 → C.9E 07:16 → C.5T 07:56 → C.5S 11-04 09:05
PROVIDERS: ADMIT Internal Medicine Pulmonary Disease; ATTEND Internal Medicine Pulmonary Disease
DX: J45.901 Unspecified asthma with (acute) exacerbation (principal); J44.1 Chronic obstructive pulmonary disease with (acute) exacerbation; I10 Essential (primary) hypertension; R09.02 Hypoxemia; E87.6 Hypokalemia; F17.200 Nicotine dependence, unspecified, uncomplicated

== ENCOUNTER 2017-09-16 10:32 | Emergency (ER) | payer MEDICAID, OTHER ==
[2017-09-16 10:32] VITALS: BMI 30.7
[2017-09-16] MEDS ORDERED: Albuterol-Ipratrop 3 mg / 0.5 (3 ml) UD ONE ×2 (11:00→11:36)
[2017-09-16] MEDS ORDERED: Sodium Chloride 0.9% 1,000 ML IV ONE (11:26)
[2017-09-16] MEDS ORDERED: Albuterol 0.083% Inhal Sol (2.5 mg/3 mL) UD INH STA (11:27)
[2017-09-16] MEDS ORDERED: MethylPREDNISolone 40 mg Vial IVP STA (11:28)
[2017-09-16] MEDS ORDERED: Sodium Chloride 0.9% 1,000 ML ONE ×2 (11:35→11:36)
[2017-09-16 11:57] LABS: BASO % 0.6 % (0.0-2.0); EOS # 0.2 K/uL (0.0-0.7); EOS % 3.9 % (0.0-4.0); HEMOGLOBIN 13.6 g/dL (12.0-18.0); LYMPH # 0.8 K/uL (1.0-4.3); LYMPH % 18.9 % (20.0-40.0); MEAN PLATELET VOLUME 8.1 fL (7.2-11.7); MONO # 0.4 K/uL (0.0-0.8); MONO % 7.9 % (0.0-10.0); NEUT # 3.1 K/uL (1.8-7.0); NEUT % 68.7 % (50.0-75.0); NRBC % 0.1 % (0.0-2.0); RBC 4.53 Mil/uL (4.40-5.90); RED CELL DISTRIBUTION WIDTH 14.1 % (11.5-14.5); WHITE BLOOD COUNT 4.4 K/uL (4.8-10.8)
[2017-09-16 12:36] LABS: B-TYPE NATRIURETIC PEPTIDE 57.5 pg/mL (0-450); BLOOD UREA NITROGEN 9 mg/dL (9-20); CALCIUM 9.3 mg/dl (8.6-10.4); GFR AFRICAN-AMERICAN > 60; GFR NON-AFRICAN AMERICAN > 60
--- NOTE | 2017-09-16 12:59 | RAD ---
Date of service: 09/16/2017 HISTORY: CHEST PAIN COMPARISON: 11/03/2016. TECHNIQUE: Chest PA and lateral FINDINGS: LUNGS: No active pulmonary disease. PLEURA: No significant pleural effusion identified. No pneumothorax apparent. CARDIOVASCULAR: No radiographic findings to suggest acute or significant cardiovascular disease. OSSEOUS STRUCTURES: No significant abnormalities. VISUALIZED UPPER ABDOMEN: Normal. OTHER FINDINGS: None. IMPRESSION: No active disease. No significant interval change compared to the prior examination(s).
--- NOTE | 2017-09-16 13:14 | C.PDOC ---
History Of Present Illness 42-year-old male, PMHx includes asthma comes in for evaluation of cold sx for past week associated with productive cough with clear sputum. Pt reports, since yesterday developed reproducible left sided chest wall pain. Pt admits working out at the gym few days prior to onset of left sided chest pain. Otherwise, pt denies fever, chills, headache, dizziness, neck pain, SOB, dyspnea, wheezing, palpitations, diaphoresis, abd. pain, N/V/D, denies any other active complaints. Ambulate to Ed for evaluation, not in any apparent distress. Time Seen by Provider: 09/16/17 10:41 Chief Complaint (Nursing): Chest Pain History Per: Patient History/Exam Limitations: no limitations Current Symptoms Are (Timing): Still Present Severity: Moderate Past Medical History Reviewed: Historical Data, Nursing Documentation, Vital Signs Vital Signs: Last Vital Signs Temp 98.8 F 09/16/17 13:51 Pulse 78 09/16/17 13:51 Resp 18 09/16/17 13:51 BP 134/81 09/16/17 13:51 Pulse Ox 97 09/16/17 13:55 - Medical History PMH: Anxiety, Arthritis, Asthma, COPD, HTN Denies: Chronic Kidney Disease - [facility] Procedures ASSISTANCE WITH RESPIRATORY VENTILATION, <24 HRS, CPAP (08/10/15) INSERTION OF ENDOTRACHEAL AIRWAY INTO TRACHEA, VIA OPENING (08/10/15) RESPIRATORY VENTILATION, 24-96 CONSECUTIVE HOURS (08/10/15) Family History: States: No Known Family Hx - Social History Hx Tobacco Use: Yes Hx Alcohol Use: Yes (pt verbalized "occasionally") Hx Substance Use: No - Immunization History Hx Tetanus Toxoid Vaccination: Yes Hx Influenza Vaccination: No Hx Pneumococcal Vaccination: No Review Of Systems Constitutional: Positive for: Chills. Negative for: Fever Cardiovascular: Negative for: Chest Pain, Palpitations, Edema Respiratory: Positive for: Cough, Sputum Gastrointestinal: Negative for: Vomiting Musculoskeletal: Negative for: Back Pain Physical Exam - Physical Exam Appears: Well, Non-toxic, No Acute Distress Skin: Normal Color, Warm, Dry, No Rash Head: Normacephalic Eye(s): bilateral: PERRL Nose: No Flaring, No Discharge Oral Mucosa: Moist Throat: No Erythema, No Exudate, No Drooling Neck: Normal ROM, Trachea Midline, Supple Chest: No Deformity, Tenderness (reproducible diffuse left lateral chest wall tenderness), No Ecchymosis, No Subcutaneous Emphysema Cardiovascular: Rhythm Regular, No Murmur, No JVD, Other ((-) carotid bruits B/L ) Respiratory: No Decreased Breath Sounds, No Accessory Muscle Use, No Stridor, Wheezing (Scattered B/L expiratory) Gastrointestinal/Abdominal: Soft, No Tenderness, No Distention, No Guarding, No Rebound Back: No CVA Tenderness, No Vertebral Tenderness Extremity: Normal ROM, No Pedal Edema, No Deformity, No Swelling Neurological/Psych: Oriented x3, Normal Speech ED Course And Treatment - Laboratory Results Result Diagrams: 09/16/17 11:49 09/16/17 11:49 Lab Interpretation: No Acute Changes ECG: Interpreted By Me, Viewed By Me ECG Rhythm: Sinus Rhythm ECG Interpretation: Normal Interpretation Of ECG: SR@@73/min, NAD, no acute t wave or ST-T changes. O2 Sat by Pulse Oximetry: 97 (RA) Pulse Ox Interpretation: Normal - Radiology CXR: Interpreted by Me, Read By Radiologist CXR Interpretation: Yes: No Acute Disease Progress Note: Pt was OBS in ED for 3 hrs and reports moderate improvement in sx. On re-eval, pt is afebrile, hemodynamicaly stable. NOn-toxic. PuslEOx 97 % RA. ENT: no acute findings. Neck: Supple, (-) JVD, (-) carotid bruits B/L. Lungs: CTA B/L, BS equal B/L. CVS: (+)S1S2, reg. Abd: benign, (-) guarding, (- ) rebound. back: (-) CVA tenderness. Blood work review and appears normal. CXR, EKG- no acute abnormalities. Pt has clinical findings c/w left sided chest wall strain, asthma exacerbation, acute bronchitis. Pt advised. ref. to F/u with PMD in 1-2 days for re-eavl. return to ED if any worsening or new changes. Disposition Counseled Patient/Family Regarding: Studies Performed, Diagnosis, Need For Followup, Rx Given - Disposition Referrals: Gustavo Gaona MD [Staff Provider] - Disposition: HOME/ ROUTINE Disposition Time: 13:01 Condition: STABLE Additional Instructions: Encourage fluids Take medication as prescribed Inhaler treatment as prescribed by PMD to continue Follow up with PMD in 2-3 days for re-evaluation. return to Ed if any worsening or new changes. Prescriptions: Azithromycin [Zithromax] 250 mg PO DAILY #4 tab Benzonatate [Tessalon Perle] 100 mg PO TID #14 capsule Methocarbamol [Robaxin] 500 mg PO TID #14 tab Prednisone [Deltasone] 40 mg PO DAILY #8 tablet Instructions: Asthma, Adult (DC), Muscle Strain (DC), Acute Bronchitis Forms: [employer] (Vietnamese) - Clinical Impression Clinical Impression: Asthma, Strain of chest wall, Bronchitis - Scribe Statement The provider has reviewed the documentation as recorded by the Scribe (Grace Rausch) All medical record entries made by the Scribe were at my direction and personally dictated by me. I have reviewed the chart and agree that the record accurately reflects my personal performance of the history, physical exam, medical decision making, and the department course for this patient. I have also personally directed, reviewed, and agree with the discharge instructions and disposition.
[2017-09-16 13:53] VITALS: BP 134/81; PULSE 78; RESP 18; TEMP 98.8
[2017-09-16 13:55] VITALS: O2SAT 97
== END 2017-09-16 14:20 | disposition home or self-care (01) ==
LOC: C.ER 10:32
DX: J45.909 Unspecified asthma, uncomplicated (principal); S29.011A Strain of muscle and tendon of front wall of thorax, initial encounter; X50.0XXA Overexertion from strenuous movement or load, initial encounter; Y92.89 Other specified places as the place of occurrence of the external cause; F17.210 Nicotine dependence, cigarettes, uncomplicated
CPT/HCPCS: 71046; 80048; 83880; 84484; 85025; 94640; 96361; 96374; 96375; 99285; J1885; J2920; J7030

== ENCOUNTER 2018-01-01 00:21 | Emergency (ER) | payer OTHER ==
[2018-01-01 00:22] VITALS: BMI 30.7
[2018-01-01] MEDS ORDERED: Albuterol-Ipratrop 3 mg / 0.5 (3 ml) UD ONE ×2 (00:29→00:44)
[2018-01-01] MEDS ORDERED: MethylPREDNISolone 40 mg Vial IVP STA (00:37)
[2018-01-01] MEDS ORDERED: Albuterol-Ipratrop 3 mg / 0.5 (3 ml) UD INH STA ×3 (00:37)
--- NOTE | 2018-01-01 00:41 | C.PDOC ---
History Of Present Illness 42 year old male with a history of COPD presents to the emergency department with complaints of wheezing and shortness of breath which began today. Time Seen by Provider: 01/01/18 00:33 Chief Complaint (Nursing): Shortness Of Breath History Per: Patient History/Exam Limitations: no limitations Onset/Duration Of Symptoms: Days (1) Current Symptoms Are (Timing): Still Present Associated Symptoms: Other (wheezing, shortness of breath) Past Medical History Reviewed: Historical Data, Nursing Documentation, Vital Signs Vital Signs: Last Vital Signs Temp 98.6 F 01/01/18 00:27 Pulse 78 01/01/18 00:27 Resp 18 01/01/18 00:27 BP 123/78 01/01/18 00:27 Pulse Ox 100 01/01/18 00:27 - Medical History PMH: Anxiety, Arthritis, Asthma, COPD, HTN Denies: Chronic Kidney Disease Surgical History: No Surg Hx - [facility] Procedures ASSISTANCE WITH RESPIRATORY VENTILATION, <24 HRS, CPAP (08/10/15) INSERTION OF ENDOTRACHEAL AIRWAY INTO TRACHEA, VIA OPENING (08/10/15) RESPIRATORY VENTILATION, 24-96 CONSECUTIVE HOURS (08/10/15) Family History: States: No Known Family Hx - Social History Hx Tobacco Use: Yes Hx Alcohol Use: Yes (pt verbalized "occasionally") Hx Substance Use: No - Immunization History Hx Tetanus Toxoid Vaccination: Yes Hx Influenza Vaccination: No Hx Pneumococcal Vaccination: No Review Of Systems Except As Marked, All Systems Reviewed And Found Negative. Constitutional: Negative for: Fever, Chills Respiratory: Positive for: Shortness of Breath, Wheezing Physical Exam - Physical Exam Appears: Non-toxic, No Acute Distress Skin: Warm, Dry Head: Atraumatic, Normacephalic Eye(s): bilateral: Normal Inspection, PERRL, EOMI Neck: Normal, Supple Chest: Symmetrical, No Tenderness Cardiovascular: Rhythm Regular, No Murmur Respiratory: No Rales, No Rhonchi, No Wheezing Gastrointestinal/Abdominal: Soft, No Tenderness, No Guarding, No Rebound Neurological/Psych: Oriented x3, Normal Speech, Normal Cognition ED Course And Treatment - Laboratory Results Result Diagrams: 01/01/18 00:56 01/01/18 00:56 O2 Sat by Pulse Oximetry: 100 (RA) Pulse Ox Interpretation: Normal Medical Decision Making Medical Decision Making: copd/prabhu Plan: EKG Chemistry Bloodwork Albuterol 3ml INH Solu-Medrol 125mg PO Urinalysis Patient AMA'd, refuses to wait for chemistry results. pt with persistent wheezing, and eclines to wait for all lab tests. understnads risks agrees to return with worsening. The patient declines admission to the hospital and wishes to leave the Emergency Department. This action is against my medical advice to the patient and the decision was made with informed refusal. The patient was told that admission is necessary and a full explanation of the rationale was given. The risks of leavi ng were explained to the patient and include, but are not limited to, worsening of known or currently unknown conditions, permanent disability and from undiagnosed or untreated conditions. The patient has the capacity to make this informed decision and understands the clinical situation and my explanation of the risks of leaving. The patient voluntarily accepts these risks and a signed AMA form documenting our conversation was obtained. The patient was given the opportunity to ask questions and reconsider. The patient was encouraged to return to the Emergency Department at any time for further care. Disposition - Disposition Referrals: Gustavo Gaona MD [Primary Care Provider] - Disposition: AGAINST MEDICAL ADVICE Disposition Time: 01:00 Condition: UNKNOWN Additional Instructions: return to any er with worsening symptoms or concerns. Prescriptions: Albuterol 0.083% [Albuterol 0.083% Inhal Eva (2.5 mg/3 ml) UD] 2.5 mg IH Q4 PRN #20 neb PRN Reason: Wheezing RX: Prednisone 50 mg PO DAILY #5 tablet Instructions: Exacerbation of COPD, Leaving Against Medical Advice Forms: [employer] (Bulgarian) - Clinical Impression Clinical Impression: COPD exacerbation, Left against medical advice - Scribe Statement The provider has reviewed the documentation as recorded by the Scribe (Crispin Pulido) Provider Attestation: All medical record entries made by the Scribe were at my direction and personally dictated by me. I have reviewed the chart and agree that the record accurately reflects my personal performance of the history, physical exam, medical decision making, and the department course for this patient. I have also personally directed, reviewed, and agree with the discharge instructions and disposition.
[2018-01-01 00:59] LABS: BASO # 0.1 K/uL (0.0-0.2); BASO % 0.9 % (0.0-2.0); EOS # 0.5 K/uL (0.0-0.7); EOS % 7.7 % (0.0-4.0); HEMOGLOBIN 14.7 g/dL (12.0-18.0); LYMPH # 1.8 K/uL (1.0-4.3); LYMPH % 29.8 % (20.0-40.0); MEAN CELL VOLUME 90.6 fL (80.0-94.0); MEAN CORPUSCULAR HEMOGLOBIN 30.7 pg (27.0-31.0); MEAN CORPUSCULAR HGB CONC 33.9 g/dL (33.0-37.0); MEAN PLATELET VOLUME 8.2 fL (7.2-11.7); MONO # 0.7 K/uL (0.0-0.8); MONO % 11.6 % (0.0-10.0); RBC 4.8 Mil/uL (4.40-5.90); RED CELL DISTRIBUTION WIDTH 13.5 % (11.5-14.5); WHITE BLOOD COUNT 5.9 K/uL (4.8-10.8)
[2018-01-01 01:09] LABS: INR 1.2; PROTHROMBIN TIME 13.2 SECONDS (9.7-12.2)
[2018-01-01 01:18] LABS: ALB/GLOB RATIO 1.6 (1.0-2.1); ALBUMIN 4.6 g/dL (3.5-5.0); ALT/SGPT 51 U/L (21-72); AST/SGOT 33 U/L (17-59); BLOOD UREA NITROGEN 12 mg/dL (9-20); CALCIUM 9.6 mg/dl (8.6-10.4); GFR NON-AFRICAN AMERICAN > 60
[2018-01-01 01:32] VITALS: BP 132/85; PULSE 95; RESP 20; TEMP 98.3
[2018-01-01 01:33] LABS: B-TYPE NATRIURETIC PEPTIDE < 11.1 pg/mL (0-450)
[2018-01-01 01:42] VITALS: O2SAT 100
--- NOTE | 2018-01-01 09:41 | RAD ---
Date of service: 01/01/2018 HISTORY: chest pain COMPARISON: Chest radiographs 09/16/2017. FINDINGS: LUNGS: No active pulmonary disease. PLEURA: No significant pleural effusion identified, no pneumothorax apparent. CARDIOVASCULAR: No aortic atherosclerotic calcification present. Normal cardiac size. No pulmonary vascular congestion. OSSEOUS STRUCTURES: No significant abnormalities. VISUALIZED UPPER ABDOMEN: Normal. OTHER FINDINGS: None. IMPRESSION: No interval acute cardiopulmonary disease appreciated.
--- NOTE | 2018-01-04 15:54 | CARD ---
APPROVED REPORT Date of service: 01/01/2018 EKG Measurement Heart [id number] <Conclusion> Sinus tachycardia Nonspecific T wave abnormality Abnormal ECG
== END 2018-01-01 01:34 | disposition left against medical advice (07) ==
LOC: C.ER 00:21 → SUPCPDRO 00:21 → C.ER 01:34
DX: J44.1 Chronic obstructive pulmonary disease with (acute) exacerbation (principal); F17.210 Nicotine dependence, cigarettes, uncomplicated
CPT/HCPCS: 71045; 80053; 83880; 84484; 85025; 85610; 85730; 93005; 94640; 96374; 99285; J2920

== ENCOUNTER 2018-03-08 07:55 | Inpatient (IN) | payer OTHER ==
[2018-03-08 07:56] VITALS: BMI 30.7
[2018-03-08] MEDS ORDERED: Albuterol-Ipratrop 3 mg / 0.5 (3 ml) UD ONE ×2 (08:23→12:43)
[2018-03-08] MEDS ORDERED: Albuterol 0.083% Inhal Sol (2.5 mg/3 mL) UD INH STA (08:24)
[2018-03-08] MEDS: Albuterol-Ipratrop 3 mg / 0.5 (3 ml) UD IH STA (08:43)
[2018-03-08 09:20] LABS: BASO % 0.4 % (0.0-2.0); EOS # 0.1 K/uL (0.0-0.7); EOS % 0.9 % (0.0-4.0); HEMOGLOBIN 14.9 g/dL (12.0-18.0); LYMPH # 0.9 K/uL (1.0-4.3); LYMPH % 8.9 % (20.0-40.0); MEAN CELL VOLUME 89.9 fL (80.0-94.0); MEAN CORPUSCULAR HEMOGLOBIN 29.8 pg (27.0-31.0); MEAN CORPUSCULAR HGB CONC 33.1 g/dL (33.0-37.0); MEAN PLATELET VOLUME 8.3 fL (7.2-11.7); MONO # 0.8 K/uL (0.0-0.8); MONO % 7.5 % (0.0-10.0); NEUT # 8.7 K/uL (1.8-7.0); NEUT % 82.3 % (50.0-75.0); PLATELET COUNT 300 K/uL (130-400); RED CELL DISTRIBUTION WIDTH 13.7 % (11.5-14.5); WHITE BLOOD COUNT 10.5 K/uL (4.8-10.8)
[2018-03-08 09:34] LABS: ALB/GLOB RATIO 1.5 (1.0-2.1); ALBUMIN 4.8 g/dL (3.5-5.0); ALT/SGPT 38 U/L (21-72); AST/SGOT 33 U/L (17-59); BLOOD UREA NITROGEN 10 mg/dL (9-20); CALCIUM 9.4 mg/dl (8.6-10.4); GFR NON-AFRICAN AMERICAN > 60
--- NOTE | 2018-03-08 09:36 | C.PDOC ---
History Of Present Illness 42 y/o male,w/PMhx of asthma, presents to the ER complaining of shortness of breath which began in the morning today. Patient is also complaining of left leg pain which has been present for the past 3-4 days. Patient denies having CP, fever, chills, nausea, vomiting, abdominal pain, dysuria, hematuria, weakness and numbness of legs. Chief Complaint (Nursing): Shortness Of Breath History Per: Patient History/Exam Limitations: no limitations Onset/Duration Of Symptoms: Days Current Symptoms Are (Timing): Still Present Severity: Moderate Past Medical History Reviewed: Historical Data, Nursing Documentation, Vital Signs Vital Signs: Last Vital Signs Temp 101.4 F H 03/08/18 08:01 Pulse 125 H 03/08/18 08:01 Resp 24 03/08/18 08:01 BP 134/79 03/08/18 08:01 Pulse Ox 92 L 03/08/18 08:01 - Medical History PMH: Anxiety, Arthritis, Asthma, COPD Denies: HTN, Chronic Kidney Disease Other Surgeries: Hx of surgeries - [facility] Procedures ASSISTANCE WITH RESPIRATORY VENTILATION, <24 HRS, CPAP (08/10/15) INSERTION OF ENDOTRACHEAL AIRWAY INTO TRACHEA, VIA OPENING (08/10/15) RESPIRATORY VENTILATION, 24-96 CONSECUTIVE HOURS (08/10/15) Family History: States: No Known Family Hx - Social History Hx Tobacco Use: Yes Hx Alcohol Use: Yes (pt verbalized "occasionally") Hx Substance Use: No - Immunization History Hx Tetanus Toxoid Vaccination: No Hx Influenza Vaccination: No Hx Pneumococcal Vaccination: No Review Of Systems Except As Marked, All Systems Reviewed And Found Negative. Constitutional: Negative for: Fever, Chills Cardiovascular: Negative for: Chest Pain Respiratory: Positive for: Shortness of Breath Gastrointestinal: Negative for: Nausea, Vomiting, Abdominal Pain Musculoskeletal: Positive for: Leg Pain Physical Exam - Physical Exam Appears: No Acute Distress, Other (febrile) Skin: Normal Color, Warm, Dry Head: Atraumatic, Normacephalic Eye(s): bilateral: Normal Inspection Nose: Normal Oral Mucosa: Moist Neck: Supple Chest: Symmetrical Cardiovascular: Rhythm Regular Respiratory: No Rales, No Rhonchi, Wheezing (significant wheezing bilaterally) Gastrointestinal/Abdominal: Soft, No Tenderness, No Guarding, No Rebound Extremity: Normal ROM, Calf Tenderness (left calf tenderness) Neurological/Psych: Oriented x3, Normal Speech ED Course And Treatment - Laboratory Results Result Diagrams: 03/08/18 09:14 03/08/18 09:14 O2 Sat by Pulse Oximetry: 92 (RA) Pulse Ox Interpretation: Abnormal - Other Rad CXR X-Ray: Viewed By Me, Read By Radiologist Interpretation: HISTORY: SOB, fever. COMPARISON: Chest x-ray performed 01/01/18. TECHNIQUE: Chest PA and lateral. FINDINGS: LUNGS: No focal consolidation. Please note that chest x-ray has limited sensitivity for the detection of pulmonary masses. PLEURA: No significant pleural effusion identified. No definite pneumothorax . CARDIOVASCULAR: Heart size appears within normal limits. No atherosclerotic calcification present. OSSEOUS STRUCTURES: Degenerative changes. VISUALIZED UPPER ABDOMEN: Unremarkable. OTHER FINDINGS: None. IMPRESSION: No focal consolidation. Progress Note: Labs, UA, Flu Swab, CXR, and Venous Duplex Scan- LLE ordered and negative for DVT. Patient treated with Solu Medrol IV, duoneb and Albuterol. on re-evaluation patient still with wheezing. Magnesium IV ordered, Torbutalin ordered. Patient was febrile on arrival, CXR look w/o acute changes, but considering COPD exacerbation and previous multiple admissions and intubations, patient was treated with Avelox IV. On re-evaluation patient still wheezing. Case was d/w who accepted him to telemetry for observation. Disposition - Disposition Disposition: HOSPITALIZED Disposition Time: 13:24 Condition: FAIR - Clinical Impression Clinical Impression: COPD exacerbation, Respiratory tract infection - PA / BARK GRINDER / Resident Statement MD/DO has reviewed & agrees with the documentation as recorded. - Scribe Statement The provider has reviewed the documentation as recorded by the Donny Phipps Provider Attestation All medical record entries made by the Donny were at my direction and personally dictated by me. I have reviewed the chart and agree that the record accurately reflects my personal performance of the history, physical exam, medical decision making, and the department course for this patient. I have also personally directed, reviewed, and agree with the discharge instructions and disposition. Decision To Admit - Pt Status Changed To: Hospital Disposition Of: Observation - . Bed Request Type: Telemetry Admitting Physician: Gustavo Gaona Patient Diagnosis: COPD exacerbation, Respiratory tract infection
[2018-03-08 09:48] LABS: INR 1.4; PARTIAL THROMBOPLASTIN TIME 28 SECONDS (21-34); PROTHROMBIN TIME 14.8 SECONDS (9.7-12.2)
[2018-03-08 09:49] LABS: LYMPHOCYTE 7 % (20-40); MONOCYTE 12 % (0-10); NEUTROPHIL 81 % (50-75); PLATELET ESTIMATE NORMAL (NORMAL); TOTAL CELLS COUNTED 100
[2018-03-08 09:50] LABS: D DIMER < 200 ng/mlDDU (0-243)
[2018-03-08 09:52] LABS: CK-MB 1.08 ng/mL (0.0-3.38)
[2018-03-08 10:07] LABS: URINE BACTERIA RARE (<OCC); URINE BILIRUBIN NEGATIVE (NEGATIVE); URINE BLOOD NEGATIVE (NEGATIVE); URINE CLARITY Clear (Clear); URINE COLOR Yellow (YELLOW); URINE GLUCOSE (UA) NORMAL (Normal); URINE LEUKOCYTE ESTERASE NEG Leu/uL (Negative); URINE PROTEIN NEGATIVE (NEGATIVE)
--- NOTE | 2018-03-08 10:17 | RAD ---
HISTORY: SOB, fever COMPARISON: Chest x-ray performed 01/01/18 TECHNIQUE: Chest PA and lateral FINDINGS: LUNGS: No focal consolidation. Please note that chest x-ray has limited sensitivity for the detection of pulmonary masses. PLEURA: No significant pleural effusion identified. No definite pneumothorax . CARDIOVASCULAR: Heart size appears within normal limits. No atherosclerotic calcification present. OSSEOUS STRUCTURES: Degenerative changes. VISUALIZED UPPER ABDOMEN: Unremarkable. OTHER FINDINGS: None. IMPRESSION: No focal consolidation.
[2018-03-08] MEDS ORDERED: Magnesium Sulfate 1 gm in D5W 1 GM/100 ML BAG IV STA (12:39)
[2018-03-08] MEDS ORDERED: Albuterol 0.083% Inhal Sol (2.5 mg/3 mL) UD IH STA (12:39)
[2018-03-08] MEDS ORDERED: Magnesium Sulfate 1 gm in D5W 1 GM/100 ML BAG IVPB ONE (12:44)
[2018-03-08] MEDS ORDERED: Albuterol 0.083% Inhal Sol (2.5 mg/3 mL) UD ONE ×2 (12:45→19:49)
[2018-03-08] MEDS ORDERED: Moxifloxacin IV 400mg/250ml NS 400 MG/250 ML BAG IV STA (13:24)
--- NOTE | 2018-03-08 15:13 | CP.PCM.PN ---
Subjective - Date & Time of Evaluation Date of Evaluation: 03/08/18 Time of Evaluation: 15:22 - Subjective Subjective: Medicine Note for Dr. Gaona This is a 42 year old male with past medical history of Asthma presented to the ED for shortness of breath x 4 weeks. Patient reports for the past 4 weeks he has noticed difficulty ambulating more than 1 block without experiencing shortness of breath. He has difficulty sleeping at night, wakes up coughing due to sensation of "choking" or not being able to breath. He states he has not climbed up any flights of stairs recently. But admits to fatigue and intermittent lower extremity swelling. Patient reports using his nebulizer treatment every 4 hours for the past 2 weeks. He does not use his albuterol inhaler (it seems more because patient was unaware when to use it) and uses symbicort daily. Denied any sick contacts, fever, chills, chest pain, abdominal pain, n/v/d/c, or urinary symptoms. PMHx- asthma PSHx- jaw surgery Allergies- NKDA Social Hx- admits to smoking 1ppd for 20 years, now smokes 5 per day, drinks 2-3 beers on the weekends; denies marijuana or other illicit drug use;unemployed Fam Hx- Dad had open heart surgery; Mom dies of an GA at 45; Sisters have asthma Objective - Vital Signs/Intake and Output Vital Signs (last 24 hours): Temp Pulse Resp BP Pulse Ox 98.3 F 89 22 123/88 92 L 03/08/18 12:38 03/08/18 12:38 03/08/18 12:38 03/08/18 12:38 03/08/18 14:42 - Labs Labs: 03/08/18 09:14 03/08/18 09:14 PT 14.8 SECONDS (9.7-12.2) H 03/08/18 09:31 INR 1.4 03/08/18 09:31 APTT 28 SECONDS (21-34) 03/08/18 09:31 - Constitutional Appears: No Acute Distress - Head Exam Head Exam: NORMAL INSPECTION, NORMOCEPHALIC - Eye Exam Eye Exam: EOMI, Normal appearance, PERRL Pupil Exam: NORMAL ACCOMODATION - ENT Exam ENT Exam: Mucous Membranes Moist - Respiratory Exam Respiratory Exam: Wheezes - Cardiovascular Exam Cardiovascular Exam: Tachycardia - GI/Abdominal Exam GI & Abdominal Exam: Soft, Normal Bowel Sounds. absent: Distended, Tenderness - Extremities Exam Extremities Exam: Normal Inspection, Tenderness (left lower extremity ) - Neurological Exam Neurological Exam: Alert, Awake, CN II-XII Intact, Oriented x3 - Psychiatric Exam Psychiatric exam: Normal Affect, Normal Mood - Skin Skin Exam: Dry, Intact, Normal Color, Warm Assessment and Plan - Assessment and Plan (Free Text) Plan: Asthma / COPD Exacerbation - Uncontrolled Asthma Imaging: - CXR: No focal consolidation Management: - Albuterol Q4H [facility], Promethazine PRN - Solumedrol 40mg IVP Q8H (will taper based on clinical improvement) - Breo Ellipta 100/25 mcg - Singular daily Progressive Dyspnea on Exertion Concern for HF Imaging: - ECHO: ordered, pending - Venous Dopplers: negative for DVT Management: - Will follow up ECHO for LVEF Tobacco Use Disorder - Stressed the importance of cessation - Nicotine patch Prophylactic Measures - GI PPX: Protonix, Probiotics - DVT PPX: SCDs, VTE not indicated Case discussed with Dr. Gaona, Maya Mckeon DO, PGY2
[2018-03-08] MEDS ORDERED: Albuterol 0.083% Inhal Sol (2.5 mg/3 mL) UD INH PRN (15:19)
[2018-03-08] MEDS: MethylPREDNISolone 40 mg Vial IVP SCH (18:36)
[2018-03-08] MEDS ORDERED: MethylPREDNISolone 40 mg Vial ONE (18:41)
[2018-03-08] MEDS ORDERED: Promethazine/Cod 6.25mg-10mg/5ml Syr UD ONE ×2 (19:50→23:52)
[2018-03-08] MEDS: Promethazine/Cod 6.25mg-10mg/5ml Syr UD PO PRN ×2 (20:04→23:54)
[2018-03-08] MEDS: Lactobacillus Acidophilus 500 MU Cap PO SCH (20:19)
[2018-03-08] MEDS: Albuterol 0.083% Inhal Sol (2.5 mg/3 mL) UD INH SCH (23:55)
[2018-03-09] MEDS ORDERED: Albuterol 0.083% Inhal Sol (2.5 mg/3 mL) UD ONE (00:16)
[2018-03-09] MEDS ORDERED: Promethazine/Cod 6.25mg-10mg/5ml Syr UD ONE (04:28)
[2018-03-09] MEDS ORDERED: MethylPREDNISolone 40 mg Vial ONE (04:28)
[2018-03-09 04:40] LABS: BASO % 0.3 % (0.0-2.0); LYMPH # 0.8 K/uL (1.0-4.3); MEAN PLATELET VOLUME 8.5 fL (7.2-11.7); MONO # 0.7 K/uL (0.0-0.8); MONO % 4.8 % (0.0-10.0); RED CELL DISTRIBUTION WIDTH 13.7 % (11.5-14.5)
[2018-03-09] MEDS: MethylPREDNISolone 40 mg Vial IVP SCH ×3 (04:40→17:15)
[2018-03-09] MEDS: Promethazine/Cod 6.25mg-10mg/5ml Syr UD PO PRN ×3 (04:41→21:51)
[2018-03-09 04:45] LABS: EOS % 0.1 % (0.0-4.0); HEMOGLOBIN 13.4 g/dL (12.0-18.0); LYMPH % 5.3 % (20.0-40.0); MEAN CELL VOLUME 91.5 fL (80.0-94.0); MEAN CORPUSCULAR HEMOGLOBIN 29.8 pg (27.0-31.0); MEAN CORPUSCULAR HGB CONC 32.5 g/dL (33.0-37.0); NEUT # 13.1 K/uL (1.8-7.0); NEUT % 89.5 % (50.0-75.0); PLATELET COUNT 266 K/uL (130-400); WHITE BLOOD COUNT 14.6 K/uL (4.8-10.8)
[2018-03-09] MEDS: Albuterol 0.083% Inhal Sol (2.5 mg/3 mL) UD INH SCH ×5 (05:00→20:32)
[2018-03-09 05:07] LABS: ALB/GLOB RATIO 1.6 (1.0-2.1); ALBUMIN 4.7 g/dL (3.5-5.0); ALT/SGPT 31 U/L (21-72); AST/SGOT 20 U/L (17-59); BLOOD UREA NITROGEN 16 mg/dL (9-20); CALCIUM 9.3 mg/dl (8.6-10.4); GFR NON-AFRICAN AMERICAN > 60
[2018-03-09] MEDS ORDERED: Albuterol-Ipratrop 3 mg / 0.5 (3 ml) UD ONE (05:07)
[2018-03-09 05:12] LABS: BANDS 2 % (0-2); LYMPHOCYTE 4 % (20-40); MONOCYTE 6 % (0-10); NEUTROPHIL 88 % (50-75); PLATELET ESTIMATE NORMAL (NORMAL); TOTAL CELLS COUNTED 100
[2018-03-09 05:13] LABS: PLATELET CLUMPS PRESENT
--- NOTE | 2018-03-09 07:16 | CP.PCM.PN ---
Subjective - Date & Time of Evaluation Date of Evaluation: 03/09/18 Time of Evaluation: 07:14 - Subjective Subjective: Medicine Note for Dr. Gaona Patient was seen and examined at bedside. Patient reports his breathing is slightly improved. He can walk to the bathroom without feeling short of breath. ROS unremarkable otherwise. Objective - Vital Signs/Intake and Output Vital Signs (last 24 hours): Temp Pulse Resp BP Pulse Ox 98.1 F 84 20 125/69 95 03/09/18 06:47 03/09/18 06:47 03/09/18 06:47 03/09/18 06:47 03/09/18 06:47 - Medications Medications: Current Medications Albuterol Sulfate (Albuterol 0.083% Inhal Eva (2.5 Mg/3 Ml) Ud) 2.5 mg INH RQ4 [facility] Last Admin: 03/09/18 05:00 Dose: 2.5 mg Fluticasone/Vilanterol (Breo Ellipta 100-25 Mcg Inh) 1 puff INH RQD [facility] Azithromycin 500 mg/ Sodium (Chloride) 250 mls @ 167 mls/hr IVPB Q24H [facility]; Protocol Stop: 03/14/18 10:01 Lactobacillus Acidophilus (Bacid Acidophilus) 1 cap PO BID [facility] Last Admin: 03/08/18 20:19 Dose: 1 cap Methylprednisolone (Solu-Medrol) 40 mg IVP Q8H [facility] Last Admin: 03/09/18 04:40 Dose: 40 mg Montelukast Sodium (Singulair) 10 mg PO DAILY [facility] Nicotine (Nicoderm Cq) 1 patch TD DAILY [facility] Pantoprazole Sodium (Protonix Ec Tab) 40 mg PO DAILY [facility] Promethazine HCl/Codeine (Phenergan/Codeine Oral Syrup) 5 ml PO Q4 PRN PRN Reason: Cough Last Admin: 03/09/18 04:41 Dose: 5 ml - Labs Labs: 03/09/18 04:36 03/09/18 04:36 PT 14.8 SECONDS (9.7-12.2) H 03/08/18 09:31 INR 1.4 03/08/18 09:31 APTT 28 SECONDS (21-34) 03/08/18 09:31 - Additional Findings Additional findings: - Constitutional Appears: No Acute Distress - Head Exam Head Exam: NORMAL INSPECTION, NORMOCEPHALIC - Eye Exam Eye Exam: EOMI, Normal appearance, PERRL Pupil Exam: NORMAL ACCOMODATION - ENT Exam ENT Exam: Mucous Membranes Moist - Respiratory Exam Respiratory Exam: Wheezes all throughout, less compared to on admission - Cardiovascular Exam Cardiovascular Exam: Tachycardia - GI/Abdominal Exam GI & Abdominal Exam: Soft, Normal Bowel Sounds. absent: Distended, Tenderness - Extremities Exam Extremities Exam: Normal Inspection, Tenderness (left lower extremity) - Neurological Exam Neurological Exam: Alert, Awake, CN II-XII Intact, Oriented x3 - Psychiatric Exam Psychiatric exam: Normal Affect, Normal Mood - Skin Skin Exam: Dry, Intact, Normal Color, Warm Assessment and Plan - Assessment and Plan (Free Text) Plan: Asthma / COPD Exacerbation - Uncontrolled Asthma Imaging: - CXR: No focal consolidation Management: - Albuterol Q4H JERARDO, Promethazine PRN - Solumedrol 40mg IVP Q8H (will taper based on clinical improvement) - Azithromycin (x 5 days) - Breo Ellipta 100/25 mcg - Singular daily Progressive Dyspnea on Exertion Concern for HF Imaging: - ECHO: ordered, pending - Venous Dopplers: negative for DVT Management: - Will follow up ECHO for LVEF Tobacco Use Disorder - Stressed the importance of cessation - Nicotine patch Prophylactic Measures - GI PPX: Protonix (due to steroid use), Probiotics - DVT PPX: SCDs, VTE not indicated Case discussed with Dr. Gaona, Maya Mckeon DO, PGY2
[2018-03-09] MEDS ORDERED: Fluticasone-Vilanterol 100/25mcg Diskus INH SCH (09:00)
[2018-03-09] MEDS: Azithromycin 500 MG in Sodium Chloride 0.9% 250 ML IVPB SCH (11:38)
[2018-03-09] MEDS: Pantoprazole 40 mg EC Tab PO SCH (11:39)
[2018-03-09] MEDS: Enoxaparin 40 mg Syringe SC SCH (11:40)
[2018-03-09] MEDS: Lactobacillus Acidophilus 500 MU Cap PO SCH ×2 (11:59→17:15)
[2018-03-09] MEDS: Albuterol-Ipratrop 3 mg / 0.5 (3 ml) UD IH STA (20:31)
--- NOTE | 2018-03-09 23:59 | CARD ---
APPROVED REPORT Date of service: 03/09/2018 EXAM: Two-dimensional and M-mode echocardiogram with Doppler and color Doppler. Other Information Quality : GoodRhythm : INDICATION Dyspnea Syncope Congestive Heart Failure COPD ASTHMA 2D DIMENSIONS IVSd1.0 (0.7-1.1cm)LVDd4.8 (3.9-5.9cm) PWd1.2 (0.7-1.1cm)LA Tsizvm80 (18-58mL) LVDs2.9 (2.5-4.0cm)FS (%) 38.9 % LVEF (%)69.2 (>50%)LVEF (Benavidez's)69 % M-Mode DIMENSIONS Left Atrium (MM)3.90 (2.5-4.0cm)IVSd1.05 (0.7-1.1cm) Aortic Root3.60 (2.2-3.7cm)LVDd4.73 (4.0-5.6cm) Aortic Cusp Exc.2.63 (1.5-2.0cm)PWd1.11 (0.7-1.1cm) FS (%) 43 %LVDs2.70 (2.0-3.8cm) LVEF (%)74 (>50%) Mitral Valve MV E Zfzsmpwy89.8cm/sMV A Pjxkbhbr98.3cm/sE/A ratio1.0 TDI Lateral E' Peak V10.09cm/sMedial E' Peak V9.64cm/sE/Lateral E'6.0 E/Medial E'6.3 LEFT VENTRICLE The left ventricle is normal size. There is normal left ventricular wall thickness. Left ventricle systolic function is normal. The Ejection Fraction is >70%. There is normal LV segmental wall motion. The left ventricular diastolic function is normal. RIGHT VENTRICLE The right ventricle is normal size. There is normal right ventricular wall thickness. The right ventricular systolic function is normal. ATRIA The left atrium size is normal. The right atrium size is normal. The interatrial septum is intact with no evidence for an atrial septal defect. AORTIC VALVE The aortic valve is normal in structure. No aortic regurgitation is present. There is no aortic valvular stenosis. There is no aortic valvular vegetation. MITRAL VALVE The mitral valve is normal in structure. There is no evidence of mitral valve prolapse. There is no mitral valve stenosis. There is no mitral valve regurgitation noted. TRICUSPID VALVE The tricuspid valve is normal in structure. There is mild tricuspid regurgitation. There is no pulmonary hypertension. PULMONIC VALVE The pulmonic valve is not well visualized. There is trace pulmonic valvular regurgitation. GREAT VESSELS The aortic root is normal in size. PERICARDIAL EFFUSION There is no significant pericardial effusion. <Conclusion> Left ventricle systolic function is normal. The Ejection Fraction is >70%. No aortic regurgitation is present. There is no mitral valve regurgitation noted. There is mild tricuspid regurgitation. There is no pulmonary hypertension. There is trace pulmonic valvular regurgitation.
[2018-03-10] MEDS: Albuterol 0.083% Inhal Sol (2.5 mg/3 mL) UD INH SCH ×6 (01:29→20:10)
[2018-03-10] MEDS: MethylPREDNISolone 40 mg Vial IVP SCH ×3 (02:18→17:23)
--- NOTE | 2018-03-10 07:07 | HP ---
HISTORY OF PRESENT ILLNESS: The patient was admitted to the hospital with a chief complaint of shortness of breath, weakness, fatigue, tiredness, and cough. The patient came to the ER, advised admission. PHYSICAL EXAMINATION: GENERAL: The patient is awake, alert, and oriented. Short of breath at rest. VITAL SIGNS: Temperature 98, pulse 90. HEENT: Within normal limit. NECK: Supple. CHEST: Symmetrical. Decreased air entry. HEART: Regular. ABDOMEN: Soft. EXTREMITIES: No edema. ASSESSMENT AND PLAN: The patient has chronic obstructive pulmonary disease and bronchitis. The patient is to get bedrest, supportive care. Gustavo Gaona MD
[2018-03-10 07:54] LABS: ALB/GLOB RATIO 1.6 (1.0-2.1); ALBUMIN 4.4 g/dL (3.5-5.0); ALT/SGPT 44 U/L (21-72); AST/SGOT 33 U/L (17-59); BLOOD UREA NITROGEN 16 mg/dL (9-20); CALCIUM 9.3 mg/dl (8.6-10.4); GFR NON-AFRICAN AMERICAN > 60
[2018-03-10 07:55] VITALS: RESP 20
[2018-03-10 08:20] LABS: BASO % 0.2 % (0.0-2.0); HEMOGLOBIN 13.6 g/dL (12.0-18.0); LYMPH # 0.8 K/uL (1.0-4.3); LYMPH % 4.8 % (20.0-40.0); MEAN CELL VOLUME 91.5 fL (80.0-94.0); MEAN CORPUSCULAR HEMOGLOBIN 30.1 pg (27.0-31.0); MEAN CORPUSCULAR HGB CONC 32.9 g/dL (33.0-37.0); MONO # 0.7 K/uL (0.0-0.8); MONO % 4.3 % (0.0-10.0); NEUT # 14.4 K/uL (1.8-7.0); NEUT % 90.7 % (50.0-75.0); PLATELET COUNT 357 K/uL (130-400); RBC 4.53 Mil/uL (4.40-5.90); RED CELL DISTRIBUTION WIDTH 13.7 % (11.5-14.5); WHITE BLOOD COUNT 15.9 K/uL (4.8-10.8)
[2018-03-10] MEDS: Pantoprazole 40 mg EC Tab PO SCH (09:06)
[2018-03-10] MEDS: Lactobacillus Acidophilus 500 MU Cap PO SCH ×2 (09:06→17:23)
[2018-03-10] MEDS: Enoxaparin 40 mg Syringe SC SCH (09:10)
[2018-03-10] MEDS: Promethazine/Cod 6.25mg-10mg/5ml Syr UD PO PRN ×3 (09:14→21:32)
[2018-03-10] MEDS: Azithromycin 500 MG in Sodium Chloride 0.9% 250 ML IVPB SCH (09:14)
[2018-03-10 09:16] LABS: BANDS 1 % (0-2); LYMPHOCYTE 7 % (20-40); MONOCYTE 2 % (0-10); NEUTROPHIL 90 % (50-75); PLATELET ESTIMATE NORMAL (NORMAL); TOTAL CELLS COUNTED 100
--- NOTE | 2018-03-10 13:13 | VASCLAB ---
Date of service: 03/08/2018 PROCEDURE: Left Lower Extremity Venous Duplex Exam. HISTORY: LE pain, SOB PRIORS: None. TECHNIQUE: Left common femoral, femoral, popliteal and posterior tibial, peroneal and great saphenous veins were evaluated. Flow was assessed with color Doppler, compressibility, assessment of phasic flow and augmentation response. Report prepared by MAYTE Aquino, RVT FINDINGS: LEFT: 1. Common Femoral Vein: 1.1. Compressibility - Fully compressible: Thrombus - None : Flow - Phasic: Augmentation -Normal: Reflux - None. 2. Femoral Vein: 2.1. Compressibility - Fully compressible: Thrombus - None: Flow - Phasic: Augmentation -Normal: Reflux - None. 3. Popliteal Vein: 3.1. Compressibility - Fully compressible: Thrombus - None: Flow - Phasic: Augmentation -Normal: Reflux - Yes. 4. Posterior Tibial Vein: 4.1. Compressibility - Fully compressible: Thrombus - None: Flow - Phasic: Augmentation -Normal: Reflux - None. 5. Peroneal Vein: 5.1. Compressibility - Fully compressible: Thrombus - None: Flow - Phasic: Augmentation -Normal: Reflux - None. 6. Great Saphenous Vein: 6.1. Compressibility - Fully compressible: Thrombus - None: Flow - Phasic: Augmentation - Normal: Reflux - None. OTHER FINDINGS: IMPRESSION: No evidence of deep or superficial vein thrombosis of the left lower extremity with excellent venous flow. Valvular incompetence of the left popliteal vein. Normal venous flow noted in the right common femoral vein.
--- NOTE | 2018-03-10 13:37 | CP.PCM.PN ---
Subjective - Date & Time of Evaluation Date of Evaluation: 03/10/18 Time of Evaluation: 13:35 - Subjective Subjective: Progress note for Dr. Gaona Patient was seen and examined at bedside in no acute distress. Patient states he feels slightly better, but still complains of cough and wheezing. He denies fevers, abdominal pain, nausea, vomiting, headaches, dizziness, chest pain, palpitations. Objective - Vital Signs/Intake and Output Vital Signs (last 24 hours): Temp Pulse Resp BP Pulse Ox 98.1 F 76 20 115/72 95 03/10/18 07:00 03/10/18 07:00 03/10/18 07:00 03/10/18 07:00 03/10/18 07:00 Intake and Output: 03/10/18 03/10/18 06:59 18:59 Intake Total 500 Balance 500 - Medications Medications: Current Medications Albuterol Sulfate (Albuterol 0.083% Inhal Eva (2.5 Mg/3 Ml) Ud) 2.5 mg INH RQ4 [facility] Last Admin: 03/10/18 11:34 Dose: 2.5 mg Enoxaparin Sodium (Lovenox) 40 mg SC DAILY [facility] Last Admin: 03/10/18 09:10 Dose: Not Given Fluticasone/Vilanterol (Breo Ellipta 100-25 Mcg Inh) 1 puff INH RQD [facility] Last Admin: 03/09/18 11:30 Dose: Not Given Azithromycin 500 mg/ Sodium (Chloride) 250 mls @ 167 mls/hr IVPB Q24H [facility]; Protocol Stop: 03/14/18 10:01 Last Admin: 03/10/18 09:14 Dose: 167 mls/hr Lactobacillus Acidophilus (Bacid Acidophilus) 1 cap PO BID [facility] Last Admin: 03/10/18 09:06 Dose: 1 cap Methylprednisolone (Solu-Medrol) 40 mg IVP Q8H [facility] Last Admin: 03/10/18 09:06 Dose: 40 mg Montelukast Sodium (Singulair) 10 mg PO DAILY [facility] Last Admin: 03/10/18 09:06 Dose: 10 mg Nicotine (Nicoderm Cq) 1 patch TD DAILY [facility] Last Admin: 03/10/18 09:06 Dose: 1 patch Pantoprazole Sodium (Protonix Ec Tab) 40 mg PO DAILY [facility] Last Admin: 03/10/18 09:06 Dose: 40 mg Promethazine HCl/Codeine (Phenergan/Codeine Oral Syrup) 5 ml PO Q4 PRN PRN Reason: Cough Last Admin: 03/10/18 09:14 Dose: 5 ml - Labs Labs: 03/10/18 07:07 03/10/18 07:07 PT 14.8 SECONDS (9.7-12.2) H 03/08/18 09:31 INR 1.4 03/08/18 09:31 APTT 28 SECONDS (21-34) 03/08/18 09:31 - Constitutional Appears: No Acute Distress - Head Exam Head Exam: ATRAUMATIC, NORMAL INSPECTION - Eye Exam Eye Exam: EOMI, Normal appearance - ENT Exam ENT Exam: Mucous Membranes Moist - Respiratory Exam Respiratory Exam: Decreased Breath Sounds, Wheezes. absent: Clear to Ausculation Bilateral, Rales, Rhonchi, Respiratory Distress - Cardiovascular Exam Cardiovascular Exam: REGULAR RHYTHM, +S1, +S2 - GI/Abdominal Exam GI & Abdominal Exam: Soft, Normal Bowel Sounds. absent: Distended, Firm, Tenderness - Extremities Exam Extremities Exam: Normal Inspection. absent: Pedal Edema, Tenderness - Neurological Exam Neurological Exam: Alert, Awake, Oriented x3 - Psychiatric Exam Psychiatric exam: Normal Affect, Normal Mood - Skin Skin Exam: Dry, Intact, Normal Color Assessment and Plan - Assessment and Plan (Free Text) Plan: Asthma / COPD Exacerbation - CXR: No focal consolidation Management: - Albuterol Q4H JERARDO, Promethazine PRN - Solumedrol 40mg IVP Q8H (will taper based on clinical improvement) - Azithromycin (x 5 days) - Breo Ellipta 100/25 mcg - Singular daily Progressive Dyspnea on Exertion - Likely secondary to asthma/copd - ECHO: EF70%, LV systolic normal, mild TR, mild pulm valve regurg - Venous Dopplers: negative for DVT Tobacco Use Disorder - Stressed the importance of cessation - Nicotine patch Prophylactic Measures - GI PPX: Protonix (due to steroid use), Probiotics - DVT PPX: SCDs, VTE not indicated Case discussed and patient seen with Dr. Jimenez Da Silva, PGY2
[2018-03-11] MEDS: Albuterol 0.083% Inhal Sol (2.5 mg/3 mL) UD INH SCH ×6 (00:55→20:50)
[2018-03-11] MEDS: MethylPREDNISolone 40 mg Vial IVP SCH ×3 (01:24→21:51)
--- NOTE | 2018-03-11 07:17 | CP.PCM.PN ---
Subjective - Date & Time of Evaluation Date of Evaluation: 03/11/18 Time of Evaluation: 07:12 - Subjective Subjective: Medicine Note for Dr. Gaona Patient was seen and examined at bedside. Patient reports his breathing has improved. ROS unremarkable. Objective - Vital Signs/Intake and Output Vital Signs (last 24 hours): Temp Pulse Resp BP Pulse Ox 98.3 F 79 20 142/81 95 03/10/18 23:35 03/10/18 23:35 03/10/18 23:35 03/10/18 23:35 03/10/18 23:35 Intake and Output: 03/11/18 03/11/18 06:59 18:59 Intake Total 940 Balance 940 - Medications Medications: Current Medications Albuterol Sulfate (Albuterol 0.083% Inhal Eva (2.5 Mg/3 Ml) Ud) 2.5 mg INH RQ4 [facility] Last Admin: 03/11/18 06:10 Dose: 2.5 mg Enoxaparin Sodium (Lovenox) 40 mg SC DAILY [facility] Last Admin: 03/10/18 09:10 Dose: Not Given Fluticasone/Vilanterol (Breo Ellipta 100-25 Mcg Inh) 1 puff INH RQD [facility] Last Admin: 03/09/18 11:30 Dose: Not Given Azithromycin 500 mg/ Sodium (Chloride) 250 mls @ 167 mls/hr IVPB Q24H [facility]; Protocol Stop: 03/14/18 10:01 Last Admin: 03/10/18 09:14 Dose: 167 mls/hr Lactobacillus Acidophilus (Bacid Acidophilus) 1 cap PO BID [facility] Last Admin: 03/10/18 17:23 Dose: 1 cap Methylprednisolone (Solu-Medrol) 40 mg IVP Q8H [facility] Last Admin: 03/11/18 01:24 Dose: 40 mg Montelukast Sodium (Singulair) 10 mg PO DAILY [facility] Last Admin: 03/10/18 09:06 Dose: 10 mg Nicotine (Nicoderm Cq) 1 patch TD DAILY [facility] Last Admin: 03/10/18 09:06 Dose: 1 patch Pantoprazole Sodium (Protonix Ec Tab) 40 mg PO DAILY [facility] Last Admin: 03/10/18 09:06 Dose: 40 mg Promethazine HCl/Codeine (Phenergan/Codeine Oral Syrup) 5 ml PO Q4 PRN PRN Reason: Cough Last Admin: 03/10/18 21:32 Dose: 5 ml - Labs Labs: 03/10/18 07:07 03/10/18 07:07 PT 14.8 SECONDS (9.7-12.2) H 03/08/18 09:31 INR 1.4 03/08/18 09:31 APTT 28 SECONDS (21-34) 03/08/18 09:31 - Constitutional Appears: No Acute Distress - Head Exam Head Exam: NORMAL INSPECTION, NORMOCEPHALIC - Eye Exam Eye Exam: EOMI, Normal appearance, PERRL Pupil Exam: NORMAL ACCOMODATION - ENT Exam ENT Exam: Mucous Membranes Moist - Neck Exam Neck Exam: Normal Inspection - Respiratory Exam Respiratory Exam: Wheezes Additional comments: improved since admission - Cardiovascular Exam Cardiovascular Exam: +S1, +S2 - GI/Abdominal Exam GI & Abdominal Exam: Soft, Normal Bowel Sounds. absent: Distended, Tenderness - Neurological Exam Neurological Exam: Alert, Awake, Oriented x3 - Psychiatric Exam Psychiatric exam: Normal Affect, Normal Mood - Skin Skin Exam: Dry, Intact, Normal Color, Warm Assessment and Plan - Assessment and Plan (Free Text) Plan: Asthma / COPD Exacerbation Imaging: - CXR: No focal consolidation Management: - Albuterol Q4H [facility]ERARDO, Promethazine PRN - Solumedrol 40mg IVP Q12H (will taper based on clinical improvement) - Azithromycin (x 5 days) - Breo Ellipta 100/25 mcg - Singular daily Progressive Dyspnea on Exertion - Likely secondary to asthma/copd - ECHO: EF70%, LV systolic normal, mild TR, mild pulm valve regurg - Venous Dopplers: negative for DVT Tobacco Use Disorder - Stressed the importance of cessation - Nicotine patch Prophylactic Measures - GI PPX: Protonix (due to steroid use), Probiotics - DVT PPX: SCDs, VTE not indicated Disposition: Patient is to be discharged 03/12/18 after 10am medications. All scripts are in the chart. Patient is to follow up with Dr. Gaona in 1-2 weeks. Patient strongly encouraged to stop smoking. Case discussed with Dr. Gaona, Maya Mckeon DO, PGY2
[2018-03-11] MEDS: Enoxaparin 40 mg Syringe SC SCH ×2 (11:09→11:12)
[2018-03-11] MEDS: Promethazine/Cod 6.25mg-10mg/5ml Syr UD PO PRN ×3 (11:09→21:52)
[2018-03-11] MEDS: Pantoprazole 40 mg EC Tab PO SCH (11:09)
[2018-03-11] MEDS: Azithromycin 500 MG in Sodium Chloride 0.9% 250 ML IVPB SCH (11:14)
[2018-03-11] MEDS: Lactobacillus Acidophilus 500 MU Cap PO SCH ×2 (12:05→17:35)
[2018-03-12] MEDS: Albuterol 0.083% Inhal Sol (2.5 mg/3 mL) UD INH SCH ×3 (00:35→07:51)
[2018-03-12] MEDS: Promethazine/Cod 6.25mg-10mg/5ml Syr UD PO PRN (07:51)
[2018-03-12 08:12] VITALS: BP 127/80; PULSE 66; TEMP 97.4; O2SAT 95
[2018-03-12] MEDS: Pantoprazole 40 mg EC Tab PO SCH (09:04)
[2018-03-12] MEDS: MethylPREDNISolone 40 mg Vial IVP SCH (09:04)
[2018-03-12] MEDS: Enoxaparin 40 mg Syringe SC SCH ×2 (09:04→09:10)
[2018-03-12] MEDS: Lactobacillus Acidophilus 500 MU Cap PO SCH (09:05)
[2018-03-12] MEDS: Azithromycin 500 MG in Sodium Chloride 0.9% 250 ML IVPB SCH (10:16)
--- NOTE | 2018-03-12 10:26 | CARD ---
APPROVED REPORT Date of service: 03/08/2018 EKG Measurement Heart [id number] <Conclusion> Sinus tachycardia Nonspecific T wave abnormality Abnormal ECG
== END 2018-03-12 10:45 | disposition home or self-care (01) | DRG 88 ==
LOC: C.ER 07:55 → C.9E 13:22 → C.5S 03-09 06:25 → OBSVTOIN 03-10 14:22 → C.5S 03-11 00:37
PROVIDERS: ADMIT Internal Medicine Pulmonary Disease; ATTEND Internal Medicine Pulmonary Disease
DX: J44.1 Chronic obstructive pulmonary disease with (acute) exacerbation (principal); J98.8 Other specified respiratory disorders; F17.210 Nicotine dependence, cigarettes, uncomplicated; Z82.49 Family history of ischemic heart disease and other diseases of the circulatory system; Z82.5 Family history of asthma and other chronic lower respiratory diseases

== ENCOUNTER 2018-07-03 | Inpatient (IN) | payer OTHER | END 2018-07-04 12:31 | disposition home or self-care (01) | DRG 96 | PROVIDERS: ADMIT Internal Medicine Pulmonary Disease ==